=== PATIENT | female | born 1955 | race Caucasian/White ===

== ENCOUNTER 2019-07-30 11:03 | Day surgery (SDC) | payer MEDICARE, SELFPAY | END 2019-07-30 15:30 | disposition home or self-care (01) | PROVIDERS: Visit Provider Urology | DX: D49.4 Neoplasm of unspecified behavior of bladder (principal); K21.9 Gastro-esophageal reflux disease without esophagitis; M19.90 Unspecified osteoarthritis, unspecified site; M79.7 Fibromyalgia; F17.210 Nicotine dependence, cigarettes, uncomplicated | CPT/HCPCS: 52240; 88305; J1100; J2001; J2250; J2405; J2704; J3010; J3490 ==

== ENCOUNTER → 2020-01-03 10:25 | Outpatient (BNVA) | payer MEDICARE, SELFPAY | PROVIDERS: PCP Nurse Practitioner Family; Visit Provider Urology | DX: C67.0 Malignant neoplasm of trigone of bladder (principal) | CPT/HCPCS: 81001 ==

== ENCOUNTER 2020-10-28 07:50 | Outpatient (CLI) | payer MEDICARE, SELFPAY ==
--- NOTE | 2020-10-28 08:03 | CT_ITS ---
WS: [id number] CT LUMBAR SPINE TECHNIQUE: Noncontrast CT of the lumbar spine with coronal and sagittal reformatted images. CLINICAL INFORMATION: CHRONIC LOW BACK PAIN WITH BILAT SCIATICA COMPARISON: MRI October 2008 DLP: 1974.[address] scans at [facility] use at least one of these dose optimization techniques: automat ed exposure control; mA and/or kV adjustment per patient size (includes targeted exams where dose is matched to clinical indication); or iterative reconstruction. FINDINGS: Slight anterolisthesis L4 on L5 measuring 5 mm. This appears new since 2008. Minimal lumbar curve. No acute compression fractures. L1-L2: Mild annular bulging. Spinal canal and foramen are patent. L2-L3: Mild annular bulging. Slight narrowing of the subarticular recess bilaterally. Mild right fora karen narrowing. Mild facet arthropathy. L3-L4: Trace anterolisthesis L3 on L4. Mild annular bulging with mild central canal stenosis. Tiny sh allow central protrusion. Impingement traversing right greater than left L4 nerve roots. Mild right a nd no left foraminal narrowing. Moderate facet arthropathy. Mild central canal stenosis. L4-L5: Grade 1 anterolisthesis. Mild annular bulging with mild to moderate central canal stenosis. Mo derate facet arthropathy. Mild bilateral foraminal narrowing. Moderate facet arthropathy. L5-S1: Mild annular bulging. Slight effacement of ventral thecal sac. Moderate facet arthropathy. Mil d left foraminal narrowing. Visualized pelvic bony structures: Normal. Paravertebral soft tissues: Normal. CT/CT lumbar spine wo con* [id number] IMPRESSION: 1. Grade 1 anterolisthesis L4 on L5 measuring 5 mm new since 2008. 2. Mild central canal stenosis L3-4 and mild to moderate central canal stenosi s L4-5 with annular bulging. Tiny shallow central protrusion L3-4. 3. Mild foraminal narrowing more prominent at right L3-L4 and bilateral L4-5. 4. Moderate facet arthropathy L3-4, L4-5, and L5-S1.
== END 2020-10-28 07:51 | disposition home or self-care (01) ==
LOC: RADWPI 07:54
PROVIDERS: PCP Nurse Practitioner Family; Visit Provider Nurse Practitioner Family
DX: M54.42 Lumbago with sciatica, left side (principal); M47.816 Spondylosis without myelopathy or radiculopathy, lumbar region; M47.817 Spondylosis without myelopathy or radiculopathy, lumbosacral region; M48.061 Spinal stenosis, lumbar region without neurogenic claudication; M51.26 Other intervertebral disc displacement, lumbar region
CPT/HCPCS: 72131

== ENCOUNTER 2021-04-24 13:39 | Outpatient (CLI) | payer MEDICARE, SELFPAY ==
--- NOTE | 2021-04-24 13:58 | CT_ITS ---
WS: [id number] CT ABDOMEN AND PELVIS WITH CONTRAST HISTORY: PELVIC PAIN TECHNIQUE: Imaging performed of the abdomen and pelvis with IV contrast. Single phase imaging of the abdomen. Coronal and sagittal reformats are submitted. All CT scans at [facility] use at [address] [facility] one of these dose optimization techniques: automated exposure control; mA and/or kV adjustment per patient size (includes targeted exams where dose is matched to clinical indication); or iterative re construction. IV CONTRAST: Omnipaque 300; 95 mL IV. Oral contrast: Yes. DLP: 1022.49 mGycm COMPARISON: 02/26/2017 Lower thorax: Lung bases are clear. Heart is normal size. Small hiatal hernia. Liver/biliary system: Normal size with no intrahepatic dilatation. Gallbladder: Normal. No gallstones or wall thickening. No pericholecystic fluid. Pancreas: Normal size pancreas and pancreatic duct. No adjacent inflammation. Spleen: Normal size spleen. No mass or infarct. Adrenal glands: Normal. Right kidney: Normal. Left kidney: No obstruction or solid mass. Too small to characterize 4 mm nodule in the lower pole co rtex. Aorta: Mild atherosclerosis with no aneurysm. Lymphadenopathy: None. Free fluid: None. GI tract: Prior appendectomy. No GI tract obstruction. There is mild diffuse fecal retention and cons tipation. Abdominal wall: Unremarkable abdominal wall. No hernia. Pelvis: Prior hysterectomy. Urinary bladder is well distended. No free fluid or ascites. 9 mm area of low attenuation in the LEFT adnexa may be a small bladder diverticulum or cystic lymph node. This is new since the prior study. Bones: 5 mm anterolisthesis of L4. No osteoblastic or osteolytic disease. CT/CT abdomen pelvis w con* [id number] IMPRESSION: 1. There is a new cystic nodule measuring 9 mm in the LEFT pelvis. Differentia l includes bladder diverticula and a cystic lymph node. Consider follow-up with PET/CT imaging or 3 month follow-up contrast-enhanced abdomen and pelvis CTs. 2. Diffuse fecal retention and constipation. 3. Prior hysterectomy.
[2021-04-24] MEDS: iohexol 300 mg/mL 50 mL Btl PO (14:00)
[2021-04-24] MEDS: iohexol 300 mg/mL 100 mL Btl IV (14:11)
== END 2021-04-24 13:40 | disposition home or self-care (01) ==
PROVIDERS: PCP Nurse Practitioner Family; Visit Provider Nurse Practitioner Family
DX: R10.2 Pelvic and perineal pain (principal); Z90.710 Acquired absence of both cervix and uterus; K59.00 Constipation, unspecified; R19.00 Intra-abdominal and pelvic swelling, mass and lump, unspecified site
CPT/HCPCS: 74177; Q9967

== ENCOUNTER 2021-06-08 05:43 | Emergency (ER) | payer MEDICARE, SELFPAY ==
[2021-06-08 05:50] VITALS: BP 126/77; PULSE 70; RESP 18; TEMP 36.6; O2SAT 98; BMI 30.2
[2021-06-08 06:11] VITALS: BP 117/68; PULSE 66; RESP 16; O2SAT 99
[2021-06-08] MEDS: sodium chloride 0.9% 1,000 ML 999 ML IV ×2 (06:15→07:34)
[2021-06-08 06:21] LABS: Basophils # 0.1 10^3/uL (0.0-0.1); Eosinophils # 0.1 10^3/uL (0.0-0.8); Eosinophils % 1.9 %; Hematocrit 41.2 % (37.0-47.0); Hemoglobin 13.3 g/dL (11.5-15.3); Lymphocytes # 1.2 10^3/uL (0.8-4.8); Lymphocytes % 21.2 %; Mean Corpuscular HGB Conc 32.3 g/dL (30.0-36.0); Mean Corpuscular Hemoglobin 30.6 pg (28.0-34.0); Mean Corpuscular Volume 94.9 fl (81-99); Mean Platelet Volume 9.5 fL (7.4-10.4); Monocytes # 0.8 10^3/uL (0.2-0.9); Neutrophils # 3.58 10^3/uL (1.8-7.7); Neutrophils % 61.7 %; Nucleated Red Blood Cells % 0 %; Platelet Count 240 10^3/cmm (130-400); Red Blood Count 4.34 10^6/uL (4.1-5.3); Red Cell Distribution Width 12.1 % (12.1-15.1); White Blood Count 5.8 10^3/uL (4.0-10.0)
[2021-06-08 06:38] LABS: Alanine Aminotransferase 14 U/L (0-33); Albumin Level 4.1 g/dL (3.5-5.2); Alkaline Phosphatase 67 IU/L (35-105); Anion Gap 13.1 (5-19); Aspartate Amino Transferase 18 U/L (0-32); Blood Urea Nitrogen 10 mg/dL (8-23); C Reactive Protein 5.3 mg/L (0.0-4.9); Calcium 8.7 mg/dL (8.5-10.5); Carbon Dioxide 27 mmol/L (22-29); Chloride 99 mmol/L (98-107); Globulin 2.7 g/dL (1.3-4.6); Glucose 99 mg/dL (65-115); Lipase 19 U/L (13-60); Osmolality Calculated 279 mOsm/kg (285-295); Potassium 4.1 mmol/L (3.5-5.1); Sodium 135 mmol/L (136-145); Total Bilirubin 0.2 mg/dL (0.15-1.2); Total Protein 6.8 g/dL (6.6-8.7)
[2021-06-08 06:39] LABS: Lactate (Lactic Acid level) 1.1 mmol/L (0.5-2.2)
[2021-06-08] MEDS: ondansetron 2 mg/ML SDV 2 mL 4 MG IVP (06:41)
[2021-06-08 07:09] VITALS: BP 117/68; PULSE 64; O2SAT 94
--- NOTE | 2021-06-08 07:18 | W.ED.ABDPA2 ---
HPI - Abdominal Pain General: Chief Complaint: Abdominal Pain Stated Complaint: pt says having gallbladder pain Time Seen by Provider: 06/08/21 06:10 History of Present Illness: HPI narrative: 65-year-old female presents to the emergency room with complaints of abdominal pain. She had a right upper quadrant pain radiating to her back. She is previously had extensive work-ups including gallbladder ultrasound and CT. She has seen Dr. Crespo who is scheduled a HIDA scan which is not due until 1117. States she has been having pain for several days now. MD elicited complaint: abdominal pain and flank pain Pertinent past history: none Onset (ago): minute(s) Location: None Severity: moderate Quality: cramping Radiation: RUQ Migration to: R flank (Into the back) Relieving factors: nothing Associated Symptoms: Reports anorexia, bloating, GI cramping, dyspepsia, nausea and poor appetite; Denies belching, change in bowel habits, change in stool character, chills, coffee ground emesis, constipation, diarrhea, dysuria, excessive flatus, fever(s), heartburn, hematochezia, hematuria, hematemesis, fecal incontinence, loose stools, melena, syncope and vomiting Review of Systems Const: Denies: fever(s) or chills ENMT: Denies: throat pain, ear or mastoid pain, nasal discharge or nasal congestion Card: Denies: syncope Resp: Denies: dyspnea, productive cough or non-productive cough GI: Reports: nausea, bloating and GI cramping; Denies: vomiting, hematemesis, coffee ground emesis, heartburn, diarrhea, constipation, belching, excessive flatus, fecal incontinence, change in bowel habits, change in stool character, hematochezia or melena : Denies: dysuria or hematuria Skin/Breast: Denies: rash or pruritus PFSH ED PFSH: Medical History Cancer of trigone of urinary bladder History of urinary retention Ovarian cancer Urgency incontinence Surgical History History of carpal tunnel repair History of colonoscopy 2020 History of colostomy reversal History of transurethral destruction of bladder lesion Status post appendectomy Status post bilateral oophorectomy Status post colostomy Social History Alcohol intake: never Adopted: No Caregiver/support person: No Lives independently: No Household members: spouse Marital status: Current occupational status: retired History of recent travel: No Current gender identity: Female Physical Exam Const: COMMON NORMALS: no acute distress GENERAL APPEARANCE: cooperative and comfortable ORIENTATION/CONSCIOUSNESS: Yes awake, Yes oriented to person, Yes oriented to place and Yes oriented to time HENMT: COMMON NORMALS: normocephalic, atraumatic and hearing grossly normal bilaterally HEAD & SCALP: normocephalic and atraumatic Neck/C-Spine: COMMON NORMALS: no JVD Resp: COMMON NORMALS: normal respiratory effort, No retractions, No use of accessory muscles and clear to auscultation bilaterally AUSCULTATION: clear to auscultation bilaterally Cardio: COMMON NORMALS: no JVD, regular rate, regular rhythm and No murmurs present (Cardio) RATE: regular rate RHYTHM: regular rhythm GI: AUSCULTATION: Yes normoactive bowel sounds PALPATION: Yes Tenderness to palpation present (GI) Details: RUQ and No Guarding due to palpation present (GI) Extremity: COMMON NORMALS: normal to inspection, capillary refill normal, no clubbing, cyanosis or edema, no calf tenderness and no pedal edema Neuro: SENSORIUM/ORIENTATION: Yes oriented to person, Yes oriented to place and Yes oriented to time Skin: COMMON NORMALS: no rashes or lesions noted GENERAL SKIN EXAM: no rashes or lesions noted Course Vital Signs: Vital signs: Vital Signs Temperature 97.9 F 06/08/21 05:50 Pulse Rate 64 06/08/21 08:50 Respiratory Rate 16 06/08/21 06:11 Blood Pressure 117/68 06/08/21 08:50 Pulse Oximetry 98 06/08/21 08:50 MDM - Abdominal Pain MDM Narrative: Medical decision making narrative: Pain much improved. Discussed with Dr. Crespo and and with the patient. At this point no indication for emergent cholecystectomy. Patient expressed understanding her symptoms resolved discharge home bland diet pain and nausea medications we will try to get her HIDA scan scheduled sooner so she can follow-up with Dr. Crespo for definitive care Dr. Crespo concurred. Lab Data: Labs: Lab Results 06/08/21 06/08/21 06/08/21 06:10 06:10 06:10 WBC 5.8 10^3/uL 10^3/ uL (4.0-10.0) RBC 4.34 10^6/uL 10^6 /uL (4.1-5.3) Hgb 13.3 g/dL g/dL (11.5-15.3) Hct 41.2 % % (37.0-47.0) MCV 94.9 fl fl (81-99) MCH 30.6 pg pg (28.0-34.0) MCHC 32.3 g/dL g/dL (30.0-36.0) RDW 12.1 % % (12.1-15.1) Plt Count 240 10^3/cmm 10^3 /cmm (130-400) MPV 9.5 fL fL (7.4-10.4) Neut % (Auto) 61.7 % % Lymph % (Auto) 21.2 % % Kershaw % (Auto) 14.0 % % Eos % (Auto) 1.9 % % Baso % (Auto) 1.0 % % Neut # (Auto) 3.58 10^3/uL 10^3 /uL (1.8-7.7) Lymph # (Auto) 1.2 10^3/uL 10^3/ uL (0.8-4.8) Kershaw # (Auto) 0.8 10^3/uL 10^3/ uL (0.2-0.9) Eos # (Auto) 0.1 10^3/uL 10^3/ uL (0.0-0.8) Baso # (Auto) 0.1 10^3/uL 10^3/ uL (0.0-0.1) Nucleated RBC % (a uto) 0 % % Nucleated RBCs # 0.0 /100WBC /100W BC Sodium 135 mmol/L L mmol /L (136-145) Potassium 4.1 mmol/L mmol/L (3.5-5.1) Chloride 99 mmol/L mmol/L (98-107) Carbon Dioxide 27 mmol/L mmol/L (22-29) Anion Gap 13.1 (5-19) BUN 10 mg/dL mg/dL (8-23) Creatinine 0.6 mg/dL mg/dL (0.5-0.9) GFR Calculation 101.0 mL/min mL/m in (90-130) Glucose 99 mg/dL mg/dL (65-115) Calculated Osmolal ity 279 mOsm/kg L mOs m/kg (285-295) Lactate 1.1 mmol/L mmol/L (0.5-2.2) Calcium 8.7 mg/dL mg/dL (8.5-10.5) Total Bilirubin 0.2 mg/dL mg/dL (0.15-1.2) AST 18 U/L U/L (0-32) ALT 14 U/L U/L (0-33) Alkaline Phosphata se 67 IU/L IU/L (35-105) C-Reactive Protein 5.3 mg/L H mg/L (0.0-4.9) Total Protein 6.8 g/dL g/dL (6.6-8.7) Albumin 4.1 g/dL g/dL (3.5-5.2) Globulin 2.7 g/dL g/dL (1.3-4.6) Lipase 19 U/L U/L (13-60) Urine Color Urine Appearance Urine pH Ur Specific Gravit y Urine Protein Urine Glucose (UA) Urine Ketones Urine Blood Urine Nitrate Urine Bilirubin Urine Urobilinogen Ur Leukocyte Thelma ase 06/08/21 08:13 WBC RBC Hgb Hct MCV MCH MCHC RDW Plt Count MPV Neut % (Auto) Lymph % (Auto) Kershaw % (Auto) Eos % (Auto) Baso % (Auto) Neut # (Auto) Lymph # (Auto) Kershaw # (Auto) Eos # (Auto) Baso # (Auto) Nucleated RBC % (a uto) Nucleated RBCs # Sodium Potassium Chloride Carbon Dioxide Anion Gap BUN Creatinine GFR Calculation Glucose Calculated Osmolal ity Lactate Calcium Total Bilirubin AST ALT Alkaline Phosphata se C-Reactive Protein Total Protein Albumin Globulin Lipase Urine Color Straw (Yellow) Urine Appearance Clear (CLEAR) Urine pH 5 (5-7) Ur Specific Gravit y 1.015 (1.005-1.030) Urine Protein Neg (Negative) Urine Glucose (UA) Norm (Normal) Urine Ketones Negative (Negative) Urine Blood Neg (Negative) Urine Nitrate Negative (Negative) Urine Bilirubin Neg (Negative) Urine Urobilinogen Norm mg/dL mg/dL (Negative) Ur Leukocyte Thelma ase Negative (Negative) Discharge Plan Discharge Patient Disposition: Home Clinical Impression: Biliary colic Condition: Stable Prescriptions: New hydrocodone-acetaminophen 5-325 mg tablet 1 tab PO Q6H PRN (Reason: pain) Qty: 10 RF: 0 promethazine 25 mg tablet 25 mg PO Q6H PRN (Reason: nausea and vomiting) Qty: 20 RF: 0 No Action gabapentin 600 mg tablet 600 mg PO DAILY RF: 0 Protonix [address] for susp in packet 40 mg PO DAILY RF: 0 duloxetine [Cymbalta] 60 mg capsule,delayed release(DR/EC) 90 mg PO DAILY RF: 0 lidocaine HCl 2 % jelly 20 ml INTRA-URET ONCE Qty: 1 RF: 0 cetirizine-pseudoephedrine [Zyrtec-D] 5-120 mg tablet extended release 12 hr 1 tab PO BID PRNRF: 0 metoprolol succinate 25 mg tablet extended release 24 hr 25 mg PO DAILY RF: 0 montelukast 10 mg tablet 10 mg PO DAILY RF: 0 lisinopril 5 mg tablet 5 mg PO DAILY RF: 0 rosuvastatin [Crestor] 10 mg tablet 10 mg PO DAILY RF: 0 chlorzoxazone 500 mg tablet 500 mg PO TID PRNRF: 0 sennosides-docusate sodium [Senna-S] 8.6-50 mg tablet 1 tab-cap PO BID 30 Days Qty: 60 RF: 0 Discharge Orders: Discharge ED (Routine); Ordered 06/08/21 Ordered By: Joe Washington Referrals: Klaudia Cedeno FNP [Primary Care Provider] - Discharge Diet: As Directed Discharge Activity: Resume usual activity Patient Instructions: Abdominal Pain (ED), Opioid Safety Activity Restrictions/Additional Instructions: Avoid fatty foods, meats, tomato-based sauces dairy products. Case management will try to move up the HIDA scan and contact Dr. Crespo's office. 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
[2021-06-08] MEDS: morphine 4 mg/mL SDV 1 mL 2 MG IVP (07:29)
[2021-06-08 08:45] LABS: Add Urine Microscopic? NO; Charge for UA Resulting for Rev
[2021-06-08 08:48] LABS: Bilirubin Urine Neg (Negative); Blood Urine Neg (Negative); Glucose Urine UA Norm (Normal); Ketones Urine Negative (Negative); Leukocyte Esterase Urine Negative (Negative); Nitrate Urine Negative (Negative); Protein Urine Neg (Negative); Specific Gravity, Urine 1.015 (1.005-1.030); Urine Appearance Clear (CLEAR); Urine Color Straw (Yellow); Urobilinogen Urine Norm (Negative); pH Urine 5 (5-7)
[2021-06-08 08:50] VITALS: BP 117/68; PULSE 64; O2SAT 98
--- NOTE | 2021-06-09 08:48 | DCPLANNER ---
Chandler ames had message to speak with centralized scheduling to see if patients HIDA scan could be rescheduled to a sooner appointment. cafeteria manager called centralized scheduling, spoke with Shena, was told that the appointment scheduled is the soonest appointment scheduled. cafeteria manager was also told that patient is on a wait list, so if there is a cancellation, then patients appointment could be moved. Chandler ames called patient and left a voicemail telling her that I tried to get the HIDA scan moved up and was unable to get the appointment changed. cafeteria manager also had message to schedule a follow up appointment for patient with general surgery, Dr. Crespo. Chandler lowe emailed patients information to both Luma and Diana at [facility] General Surgery / ENT clinic. Patients information will be printed and reviewed. Clinic will call patient with appointment information.
--- NOTE | 2021-06-10 15:29 | DCPLANNER ---
Patient had a follow up appointment scheduled for 06.09.[address] Crespo at [facility] General Surgery - patient did attend appointment.
== END 2021-06-08 08:51 | disposition home or self-care (01) ==
PROVIDERS: Emergency Medicine; Emergency Provider Family Medicine; PCP Nurse Practitioner Family
DX: K80.50 Calculus of bile duct without cholangitis or cholecystitis without obstruction (principal); Z85.43 Personal history of malignant neoplasm of ovary; Z85.51 Personal history of malignant neoplasm of bladder
CPT/HCPCS: 80053; 81003; 83605; 83690; 85025; 86140; 96361; 96374; 96375; 99283; J2270; J2405; J2930; J7030

== ENCOUNTER → 2021-06-12 08:28 | Outpatient (BNVA) | payer MEDICARE, SELFPAY | PROVIDERS: PCP Nurse Practitioner Family; Visit Provider Surgery | DX: Z20.822 Contact with and (suspected) exposure to COVID-19 (principal); Z11.52 Encounter for screening for COVID-19 | CPT/HCPCS: 87635 ==

== ENCOUNTER 2021-06-17 10:24 | Day surgery (SDC) | payer MEDICARE, SELFPAY ==
[2021-06-16 11:48] VITALS: BMI 30.2
--- NOTE | 2021-06-17 10:55 | W.PM.OPSUD ---
Surgery/Procedure H&P Update DATE OF PROCEDURE: June 17, 2021 DATE H&P PERFORMED: 06/09/21 H&P UPDATE INFORMATION: I have reviewed H&P completed within last 30 days, I have examined patient prior to procedure and No changes to prior documentation PLANNED PROCEDURE: Operation Date: 06/17/21 11:50 Proposed Procedures p Laparoscopic Cholecystectomy 81168 K80.50(Not Applicable) - Alejandro Crespo MD s EGD 93359 K80.50(Not Applicable) - Alejandro Crespo MD
[2021-06-17 11:20] VITALS: BP 121/66; PULSE 68; RESP 18; TEMP 36.2; O2SAT 96
[2021-06-17] MEDS: sodium chloride 0.9% 1,000 ML 30 ML IV (11:41)
--- NOTE | 2021-06-17 12:19 | ANES.PREANE2 ---
Pre-Anesthetic Assessment Pre-Anesthetic Assessment: Height/Weight: Height 1.5 m Weight 68.039 kg Temp Pulse Resp BP Pulse Ox 97.1 F L 68 18 121/66 96 06/17/21 11:20 06/17/21 11:20 06/17/21 11:20 06/17/21 11:20 06/17/21 11:20 Preop Diagnosis: Chronic cholecystitis Proposed Procedure: Operation Date: 06/17/21 11:50 Proposed Procedures p Laparoscopic Cholecystectomy 65487 K80.50(Not Applicable) - Alejandro Crespo MD s EGD 93698 K80.50(Not Applicable) - Alejandro Crespo MD Was Beta Doris taken within 24 hours: Yes Was Clonidine taken within 24 hours: N/A Last intake: Intake Last Liquid Date 06/16/21 Last Liquid Time 20:00 Last Solid Date 06/17/21 Last Solid Time 20:00 Social: Social History: Tobacco and No alcohol Exam: Pre-Anes Outpt Exam: alert, oriented x 3 and regular rate & rhythm Airway: Submandibular: WNL Cervical ROM: WNL MP: 2 Dentition: False (lower) Pulmonary: Pulmonary: COPD CV/HEM: CV/HEM: HTN Metabolic: Metabolic: Hyperlipidemia Neuropsych: Neuropsych: Depression and Neuropathy Anesthetic Plan: ASA status: 3 Anesthesia: General Risk of > 500 ml blood loss (7ml/kg in children): No Meds/Allergies Current Medications: Current Medications Generic Name Dose Route Start Last Admin Trade Name Freq PRN Reason Stop Dose Admin Sodium Chloride 1,000 mls @ 30 ml s/hr 06/17/21 11:15 06/17/21 11:41 Sodium Chloride 0.9% IV 06/18/21 11:14 30 mls/hr .Q24H JOSI Administration PFSH Anesthesia PFSH: Medical History (Updated 06/16/21 @ 00:01 by ) Cancer of trigone of urinary bladder History of urinary retention Ovarian cancer Urgency incontinence Surgical History (Updated 06/17/21 @ 12:06 by Alejandro Crespo MD) H/O esophagogastroduodenoscopy (06/17/21) History of carpal tunnel repair History of colonoscopy 2020 History of colostomy reversal History of transurethral destruction of bladder lesion Status post appendectomy Status post bilateral oophorectomy Status post colostomy Status post laparoscopic cholecystectomy (11/17/21) Social History Alcohol intake: never Adopted: No Caregiver/support person: No Lives independently: No Household members: spouse Marital status: Current occupational status: retired History of recent travel: No Current gender identity: Female Data Anesthesia Cardiac Studies: No Data to Display
[2021-06-17] MEDS: levofloxacin-dextrose 5 % 500 MG/100 ML PREMIX 100 MG IV (12:47)
--- NOTE | 2021-06-17 14:03 | PM.OP ---
Operative Report Date of procedure: June 17, 2021 Pre-op Diagnosis: 1. Chronic cholecystitis 2. History of ovarian cancer 3. Postprandial right upper quadrant pain Post-op Diagnosis: 1. Nonerosive gastritis noted in the antrum biopsied with cold biopsy forceps 2. Omental lesions noted in the right upper quadrant, no significant lesions noted in the other quadrants of the abdominal cavity 3. Chronic cholecystitis 4. Loop of small bowel adherent to the abdominal wall inferior to the umbilicus Procedure Done: 1. Esophagogastroduodenoscopy with biopsy 2. Laparoscopic cholecystectomy 3. Laparoscopic excision of omental lesions Specimens removed/disposition: 1. antral biopsy 2. chronic cholecystitis 3. omental lesions right upper quadrant Surgeon: Alejandro Crespo Anesthesia: General Condition: stable Disposition: PACU Procedure: The patient was taken to the operating room and intubated under GA. A gastroscope was introduced and advanced up to second portion of the duodenum and slowly withdrawn. Duodenum second portion: Normal Duodenal bulb: Normal Stomach Fundus: Normal body: Normal Antrum: non erosive gastritis noted , which was biopsied with cold biopsy forceps. Pylorus: Normal Esophagus GE junction: Normal at 40 cm Rest of esophagus: Normal After the antibiotic had been administered, the abdomen was prepped and draped in a sterile manner. Using a #15 blade, a 1 centimeter infraumbilical curvilinear incision was made and using an open Magaly technique the peritoneal cavity was entered. A 10 millimeter port was placed and 15 millimeters of pneumoperitoneum was created. A 10 millimeter, 30 degrees scope was then introduced. Three 5 millimeter ports were placed in the epigastric, midclavicular and the anterior axillary line two fingerbreadths below the costal margin on the right side under the direct visualization. Ratcheted forceps were introduced into the lateral most port and was used to retract the fundus of the gallbladder cephalad and using forceps the infundibulum of the gallbladder was retracted laterally. The density lesions around infundibulum of the gallbladder which was taken down using a combination of electrocautery and suction gate person. There was bleeding from the omentum adherent to the gallbladder and this was controlled with clips. Using L-hook cautery the peritoneum overlying the Calot's triangle was opened medially and laterally until the cystic duct and the cystic artery were skeletonized. Dissection was carried along the body of the gallbladder and after ensuring critical view of safety, 4 clips were applied on the cystic duct and cut leaving, 3 clips on the remaining portion of the duct. The cystic artery was divided with electrocautery. The rest of the gallbladder was dissected off the liver using L-hook cautery. There was no bleeding or bile leaking noted from the gallbladder fossa and the clips appeared to be in place. An EndoCatch bag was introduced to remove the gallbladder. There were multiple omental lesions noted in the right upper quadrant and this was excised using electrocautery and sent to pathology in formalin, given patient's history of ovarian cancer. All the ports were removed under direct visualization and there was no bleeding noted from the port sites. The fascia of the umbilicus was closed using [id number] 0 Vicryl sutures and the subcutaneous tissue was approximated using 3-0 Vicryl sutures. The skin at all four ports were closed using 4-0 Monocryl and Dermabond. A total of 10 millimeters of 0.5% Marcaine was infiltrated around the port sites. The patient was stable throughout the procedure.
[2021-06-17 14:12] VITALS: BP 167/75; PULSE 68; RESP 20; TEMP 36.2; O2SAT 96
[2021-06-17 14:20] VITALS: BP 144/65; PULSE 74; RESP 18; O2SAT 96
[2021-06-17 14:25] VITALS: BP 119/73; PULSE 67; RESP 22; TEMP 36.4; O2SAT 94
[2021-06-17] MEDS: HYDROcodone-acetaminophen 5-325 mg Tablet 1 TAB PO (14:55)
--- NOTE | 2021-06-17 14:56 | ANE.PACU2 ---
Inpatient post-anesthesia follow up: Airway intact: Yes Vital signs: Temperature 97.5 F Pulse Rate 67 Respiratory Rate 22 Blood Pressure 119/73 Pulse Oximetry 94 Oxygen Delivery Me thod Room Air Oxygen Flow Rate 8 Fraction of Inspir ed Oxygen Hydration adequate: Yes Nausea and vomiting: No Pain level: 2 Mental status: Baseline
== END 2021-06-17 15:15 | disposition home or self-care (01) ==
PROVIDERS: PCP Nurse Practitioner Family; Visit Provider Surgery
PROC: 0FT44ZZ Resection of Gallbladder, Percutaneous Endoscopic Approach (ICD-10-PCS; CPT 47562; principal; 2021-06-17 11:45)
PROC: 0DJ08ZZ Inspection of Upper Intestinal Tract, Via Natural or Artificial Opening Endoscopic (ICD-10-PCS; CPT 43235; 2021-06-17 11:45)
DX: K80.50 Calculus of bile duct without cholangitis or cholecystitis without obstruction (principal); K29.50 Unspecified chronic gastritis without bleeding; C78.6 Secondary malignant neoplasm of retroperitoneum and peritoneum; K56.2 Volvulus; Z85.43 Personal history of malignant neoplasm of ovary; Z90.89 Acquired absence of other organs; Z88.5 Allergy status to narcotic agent; Z88.0 Allergy status to penicillin; Z88.2 Allergy status to sulfonamides
CPT/HCPCS: 43239; 47562; 58662; 88304; 88305; 96365; J1100; J1956; J2310; J2405; J2704; J2710; J3010; J3490; J7030

== ENCOUNTER 2021-07-28 13:47 | Outpatient (CLI) | payer MEDICARE, SELFPAY ==
--- NOTE | 2021-07-28 | CT_ITS ---
WS: [id number] CT scan of the abdomen and pelvis with Oral and IV contrast. Additional two-dimensional coronal and s agittal reconstruction was performed. 07/28/2021 Clinical Data: OVARIAN CANCER Comparison: CT abdomen and pelvis, 04/24/2021. DLP: 1048.[address] scans at [facility] use at least one of these dose optimization techniques: automated e xposure control; mA and/or kV adjustment per patient size (includes targeted exams where dose is matc hed to clinical indication); or iterative reconstruction. Findings: The lower lungs show no nodules, masses or effusions. There is moderate ascites throughout the abdome n. The liver, spleen, adrenal glands and pancreas are normal. There are clips in the gallbladder fossa f rom a cholecystectomy. The kidneys show equal bilateral contrast excretion with no cyst or masses. No renal calculi or hydro nephrosis is seen. The abdominal aorta is normal in size with minimal calcification in the wall.. No appendicitis or diverticulitis is seen. Oral contrast is in the stomach, small bowel and ascending colon and there is no bowel dilatation. No abscess, adenopathy, mass, obstruction or free air is see n. The bladder is unremarkable. The uterus is absent. No inguinal hernia is seen. No pelvic masses are s een. The bones of the lower thorax, lumbar spine, pelvis, and hips show minimal osteoarthritis of the lowe r thoracic vertebral bodies. CT/CT abdomen pelvis w con* [id number] Impression: 1. Moderate abdominal and pelvic ascites. 2. Negative for acute intra-abdominal or pelvic abnormalities. 3. Report was called to Nidia Durham at 1525 hours.
[2021-07-28] MEDS: iohexol 300 mg/mL 50 mL Btl PO (16:18)
[2021-07-28] MEDS: iohexol 350 mg/mL 100 mL Btl IV (16:18)
== END 2021-07-28 13:48 | disposition home or self-care (01) ==
PROVIDERS: PCP Nurse Practitioner Family; Visit Provider Physician Assistant
DX: C56.9 Malignant neoplasm of unspecified ovary (principal); R18.8 Other ascites
CPT/HCPCS: 74177; Q9967

== ENCOUNTER 2021-08-04 12:52 | Outpatient (CLI) | payer MEDICARE, SELFPAY ==
[2021-08-04 15:53] LABS: INR 1.03 (0.8-1.2)
[2021-08-04 15:55] LABS: Basophils # 0.1 10^3/uL (0.0-0.1); Eosinophils # 0.2 10^3/uL (0.0-0.8); Eosinophils % 3.8 %; Hematocrit 34.5 % (37.0-47.0); Hemoglobin 11.1 g/dL (11.5-15.3); Lymphocytes # 1.4 10^3/uL (0.8-4.8); Lymphocytes % 27.9 %; Mean Corpuscular HGB Conc 32.2 g/dL (30.0-36.0); Mean Corpuscular Hemoglobin 28.9 pg (28.0-34.0); Mean Corpuscular Volume 89.8 fl (81-99); Mean Platelet Volume 8.8 fL (7.4-10.4); Monocytes # 0.8 10^3/uL (0.2-0.9); Neutrophils # 2.54 10^3/uL (1.8-7.7); Neutrophils % 50.7 %; Nucleated Red Blood Cells % 0 %; Platelet Count 543 10^3/cmm (130-400); Red Blood Count 3.84 10^6/uL (4.1-5.3); Red Cell Distribution Width 12.5 % (12.1-15.1)
[2021-08-04 16:06] LABS: Alanine Aminotransferase 12 U/L (0-33); Albumin Level 3.4 g/dL (3.5-5.2); Alkaline Phosphatase 69 IU/L (35-105); Anion Gap 17.8 (5-19); Aspartate Amino Transferase 16 U/L (0-32); Blood Urea Nitrogen 6 mg/dL (8-23); Calcium 8.2 mg/dL (8.5-10.5); Carbon Dioxide 23 mmol/L (22-29); Chloride 94 mmol/L (98-107); Globulin 2.8 g/dL (1.3-4.6); Glomerular Filtration Rate 124.6 mL/min (90-130); Glucose 85 mg/dL (65-115); Osmolality Calculated 269 mOsm/kg (285-295); Potassium 3.8 mmol/L (3.5-5.1); Sodium 131 mmol/L (136-145); Total Bilirubin 0.2 mg/dL (0.15-1.2); Total Protein 6.2 g/dL (6.6-8.7)
--- NOTE | 2021-08-05 07:53 | ONC CON_ITS ---
Dr. Benitez New Patient Note Patient: Tonya Pacheco Unit #: [id number]: 1955 Dicatated By: Reno Benitez M.D.Date of Visit: Aug 04, 2021 Onc MED New Patient/Consult Referring Physician: Jose D Jefferson M.D. Chief Complaint: Ovarian cancer. 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 She had presented with a pelvic mass. At exploratory laparotomy she was found to have a hard mass between the uterus and rectum which appeared to be arising from the left ovary. The disease appeared to be growing into the rectal area, but there were no peritoneal implants noted and the disease appeared to be all confined within the pelvis. The procedure included hysterectomy, bilateral bilateral salpingo-oophorectomy and partial omentectomy. The tumor was completely excised, though she did require temporary placement of a diverting loop colostomy due to invasion of the adjacent sigmoid colon. Pathology showed grade 3/4 adenocarcinoma felt to be most consistent with serous adenocarcinoma, though it did show a papillary configuration. The tumor measured 11.8 cm in maximum dimension. There was focal penetration through the capsule of the left ovary into the included portion of the adjacent bowel wall. There was no involvement in the left fallopian tube or in the right ovary and right fallopian tube and there was no involvement in the omentum. She was given postoperative adjuvant chemotherapy with 6 cycles of carboplatin/Taxol, which she completed in March 2008. I had last seen her in December 2012. At that point there had been no evidence of recurrence of the ovarian cancer. 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 She has continued surveillance with Dr. Magaña. On 05/29/2021 she was seen by Dr. Crespo with worsening abdominal pain. A prior CT abdomen/pelvis from 04/24/2021 had shown evidence of a new cystic nodule in the left pelvis measuring 9 mm. The only other significant finding was diffuse fecal retention and constipation. She was scheduled to have further evaluation with a HIDA scan. However, in the meantime she had presented to the emergency room with biliary colic, and he opted to proceed with EGD and laparoscopic cholecystectomy on 06/17/2021. The EGD showed nonerosive gastritis. 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 The gallbladder showed acute and chronic cholecystitis with no malignancy identified. In July she had a [facility] oncology consultation with Dr. Singh. At the time she indicated she would not consider any further chemotherapy. He suggested the possibility of a trial of therapy with letrozole or with selumetinib and trametinib. As yet she has not had any further treatment. Her other medical illnesses include degenerative arthritis/degenerative disease of the spine, fibromyalgia, and anxiety/depression. She has history of smoking 2 packs of cigarettes daily for 40 years. She is seen now for further management of the ovarian cancer. In the interim, she did have another CT of the abdomen/pelvis on 07/28/2021. That study showed development of moderate abdominal and pelvic ascites but it was otherwise negative for acute intra-abdominal or pelvic abnormalities. Her main complaint is that she is having difficulty dealing with the fluid, and she also has not having pain in the right upper quadrant area which radiates around to her back. She is fatigued, and she has very limited activity. ECOG score is 2. She complains that she has no appetite. She has not had fever. She reports having bad night sweating. She has not had sore mouth or throat. She has a smoker's cough. She says her breathing is okay, though she sometimes has wheezing. She does not complain of chest pain. She says her stomach feels a little queasy. She has been having constipation, but her bowel function recently has been better. She has no complaints other than some urgency/incontinence, which is chronic. She has chronic back pain. She does not complain of headache. She has occasional lightheadedness. She has no numbness/paresthesia or other focal neurologic symptoms. Past Medical History: Her medical history includes anxiety, degenerative arthritis, degenerative disease of the spine, depression, fibromyalgia, ovarian cancer, and history of bladder cancer. Past Surgical History: Her surgical/procedural history includes appendectomy, carpal tunnel repair, colostomy reversal, EGD and laparoscopic cholecystectomy in 2020, colonoscopy in 2020, transurethral destruction of bladder lesion in 2018, and hysterectomy/bilateral salpingo-oophorectomy/omentectomy and placement of diverting colostomy in 2007. Medications: Crestor 1 Tablet (of 10 mg) Oral at bedtime, DULoxetine HCl 1 Tablet (of 60 mg) Capsule Delayed Release Particles Oral daily, DULoxetine HCl 1 Tablet (of 30 mg) Capsule Delayed Release Particles Oral daily, Esomeprazole Magnesium 1 Capsule (of 40 mg) Capsule Delayed Release Oral daily, Famotidine 1 Tablet (of 40 mg) Oral daily, Gabapentin 1 Tablet (of 600 mg) Oral at bedtime, HYDROcodone-Acetaminophen 1 - 2 Tablet (of 5-325 mg) Oral q 8 hours PRN, Lisinopril 1 Tablet (of 5 mg) Oral daily, Metoprolol Succinate ER 1 Tablet (of 25 mg) Tablet SR 24 HR Oral daily, Montelukast Sodium 1 Tablet Oral daily, Senokot S 1 Tablet (of 8.6-50 mg) Oral daily PRN Allergies: Codeine Phosphate, influenza virus vaccine tval , Morphine Sulfate, NSAIDs, Penicillin G Benzathine, and Sulfa Antibiotics. Social History: Ms. Pacheco is . She has history of smoking 2 packs of cigarettes daily for 40 years. She does not drink alcohol. Family History: Family history significant for mother having of breast cancer at age 62. A paternal aunt had breast cancer and a paternal uncle had non-Hodgkin's lymphoma. Review Of Symptoms: Constitutional - She has fatigue in her activity is limited. She complained that she has no appetite. She has not had fever. She does have bad night sweating. ECOG score is 2, ENMT - No sinus congestion/drainage. No mouth sores. No sore throat or difficulty swallowing, Hematologic/Lymphatic - No abnormal bruising or bleeding, Respiratory - She does not complain of shortness of breath, though she sometimes has wheezing. She has a smokers cough. No pleuritic pain or hemoptysis, Cardiovascular - No angina pain. No palpitations, Gastrointestinal - No nausea or vomiting, but she sometimes feels queasy. She has occasional acid reflux. She has had some constipation, and she is having pain in the right upper quadrant area. No blood in the stool or black stools, Genitourinary (F) - No dysuria or hematuria. No urinary frequency. She does have some urgency/incontinence, Musculoskeletal - She has had some back pain, Integumentary - No skin rash or other skin changes, Neurologic - No headache. She has had some lightheadedness. No numbness or tingling. No other focal neurologic symptoms, Psychiatric - She has anxiety/depression. No insomnia. Vital Signs: Performed on Aug 04, 2021 14:32: 5, 6, 26.71, 1.72 sq.m, 63.00 in, 98 %, 71 /min, 17 /min, 111/72 mm(hg), 98.0 F (LOW), and 150.8 lbs (HIGH). Physical Examination: Constitutional - She looks pretty good generally, Eyes - Sclerae nonicteric. Conjunctivae clear, ENMT - No lesions noted in the oral cavity, Neck - No mass or thyromegaly, Hematologic/Lymphatic - No cervical, clavicular or axillary adenopathy, Respiratory - Lungs sound clear with some decrease in air movement bilaterally, Cardiovascular - Heart rhythm is regular. There is no murmur, gallop, or rub noted, Abdomen - Moderately distended with ascites. There is tenderness across the upper abdomen. Liver and spleen do not appear enlarged. There is no abdominal mass or ascites noted and no inguinal adenopathy, Back/Spine - No bony tenderness in the spine or ribs, Extremities - No edema, Neurologic - No focal neurologic deficits noted. Problem List: 1. Recurrent ovarian cancer. 2. She has additional history of low-grade papillary urothelial cancer involving the bladder trigone for which she underwent TURBT in July 2019. She is on surveillance. 3. Degenerative arthritis/degenerative disease of the spine. 4. Fibromyalgia. 5. Anxiety/depression. 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 Her treatment included hysterectomy/bilateral salpingo-oophorectomy and omentectomy in October 2007 followed by adjuvant chemotherapy with 6 cycles of carboplatin/paclitaxel, completed in March 2008. She now has recurrence of the ovarian cancer in the form of multiple omental lesions. There is associated ascites. Pathology on the omental biopsy was consistent with ovarian mixed malignant Tone-mucinous tumor. Clinically this was felt to be consistent with a low-grade ovarian neoplasm, but she has had fairly rapid onset of ascites following a laparoscopic cholecystectomy procedure in June 2021. At this point I will get her scheduled for ultrasound-guided paracentesis, and will have studies done on the ascitic fluid. Also will get baseline laboratory studies to include CBC, CMP, and CA-125 level. In the meantime, I also will request next generation sequencing on the omental biopsy. I will plan to discuss further treatment options when those results are available. Signed By: Reno Benitez M.D. <<Signature on File>>
== END 2021-08-04 12:53 | disposition home or self-care (01) ==
LOC: ONCMED 13:01
PROVIDERS: PCP Nurse Practitioner Family; Visit Provider Internal Medicine Medical Oncology
DX: C79.60 Secondary malignant neoplasm of unspecified ovary (principal); F41.9 Anxiety disorder, unspecified; F32.A Depression, unspecified; M79.7 Fibromyalgia; M47.899 Other spondylosis, site unspecified; Z79.899 Other long term (current) drug therapy; Z85.51 Personal history of malignant neoplasm of bladder; Z87.891 Personal history of nicotine dependence
CPT/HCPCS: 36415; 80053; 85025; 85610; 86304; 99205

== ENCOUNTER 2021-08-14 12:02 | Day surgery (SDC) | payer MEDICARE, SELFPAY ==
[2021-08-10 16:09] VITALS: BMI 30.2
[2021-08-14 12:10] VITALS: BP 113/68; PULSE 63; RESP 18; TEMP 36.5; O2SAT 98
--- NOTE | 2021-08-14 12:26 | US_ITS ---
WS: [id number] INDICATION: Paracentesis TECHNIQUE: Four-quadrant ultrasound FINDINGS: Four-quadrant ultrasound for paracentesis. Mild abdominal ascites today. Insufficient ascites for paracentesis. US/US abdomen lmt fluid [id number] IMPRESSION: Insufficient fluid for paracentesis
== END 2021-08-14 12:54 | disposition home or self-care (01) ==
LOC: GILAB 12:03
PROVIDERS: Radiology Neuroradiology; PCP Nurse Practitioner Family; Visit Provider Radiology Diagnostic Radiology
DX: R18.8 Other ascites (principal)
CPT/HCPCS: 49083; 76705

== ENCOUNTER 2021-08-31 08:20 | Outpatient (CLI) | payer MEDICARE, SELFPAY ==
--- NOTE | 2021-09-01 08:15 | ONC FU_ITS ---
Dr. Benitez Patient Follow-Up Note Patient: Tonya Pacheco Unit #: [id number]: 1955 Dicatated By: Reno Benitez M.D.Date of Visit:Aug 31, 2021 Onc Med Follow-up/Prog Note Chief Complaint: Ovarian cancer. 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 She had presented with a pelvic mass. At exploratory laparotomy she was found to have a hard mass between the uterus and rectum which appeared to be arising from the left ovary. The disease appeared to be growing into the rectal area, but there were no peritoneal implants noted and the disease appeared to be all confined within the pelvis. The procedure included hysterectomy, bilateral bilateral salpingo-oophorectomy and partial omentectomy. The tumor was completely excised, though she did require temporary placement of a diverting loop colostomy due to invasion of the adjacent sigmoid colon. Pathology showed grade 3/4 adenocarcinoma felt to be most consistent with serous adenocarcinoma, though it did show a papillary configuration. The tumor measured 11.8 cm in maximum dimension. There was focal penetration through the capsule of the left ovary into the included portion of the adjacent bowel wall. There was no involvement in the left fallopian tube or in the right ovary and right fallopian tube and there was no involvement in the omentum. She was given postoperative adjuvant chemotherapy with 6 cycles of carboplatin/Taxol, which she completed in March 2008. I had last seen her in December 2012. At that point there had been no evidence of recurrence of the ovarian cancer. 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 She has continued surveillance with Dr. Magaña. On 05/29/2021 she was seen by Dr. Crespo with worsening abdominal pain. A prior CT abdomen/pelvis from 04/24/2021 had shown evidence of a new cystic nodule in the left pelvis measuring 9 mm. The only other significant finding was diffuse fecal retention and constipation. She was scheduled to have further evaluation with a HIDA scan. However, in the meantime she had presented to the emergency room with biliary colic, and he opted to proceed with EGD and laparoscopic cholecystectomy on 06/17/2021. The EGD showed nonerosive gastritis. 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 The gallbladder showed acute and chronic cholecystitis with no malignancy identified. In July she had a [facility] oncology consultation with Dr. Singh. At the time she indicated she would not consider any further chemotherapy. He suggested the possibility of a trial of therapy with letrozole or with selumetinib and trametinib. As yet she has not had any further treatment. Her CT of the abdomen/pelvis on 07/28/2021 showed development of moderate abdominal and pelvic ascites but it was otherwise negative for acute intra-abdominal or pelvic abnormalities. She had an attempted ultrasound guided paracentesis on 08/14/2021, but the procedure was not performed due to insufficient fluid. Her other medical illnesses include degenerative arthritis/degenerative disease of the spine, fibromyalgia, and anxiety/depression. She has history of smoking 2 packs of cigarettes daily for 40 years. INTERIM HISTORY: A next generation sequencing study performed on the omental biopsy showed no actionable mutations. The tumor was MSI stable and a tumor mutational burden was low. However, it was positive for PD-L1 expression, CPS 15%, and the genomic CRISTOBAL was reported to be high at 18%. She is seen for a follow-up visit. She complains that she is worn out. Her main problem is that she has been having pain extending from the epigastric area down to the lower abdomen whenever she tries to eat. She has not been able to eat very much because of it, but she has not had nausea/vomiting or other associated GI symptoms. She says her bowels have been moving once or twice a day. She is still able to do housework. ECOG score is 1. She has not had fever, she has been having night sweating. She has not had sore mouth or throat. She has a smoker's cough. She does not complain of shortness of breath or chest pain. Bladder function has been okay. She has no significant joint or bone pain. She does not complain of headache or dizziness, and she has no focal neurologic symptoms. She has been having more depression, but that is associated with the pain and the difficulty eating. Medications: Crestor 1 Tablet (of 10 mg) Oral at bedtime, DULoxetine HCl 1 Tablet (of 60 mg) Capsule Delayed Release Particles Oral daily, DULoxetine HCl 1 Tablet (of 30 mg) Capsule Delayed Release Particles Oral daily, Esomeprazole Magnesium 1 Capsule (of 40 mg) Capsule Delayed Release Oral daily, Famotidine 1 Tablet (of 40 mg) Oral daily, Gabapentin 1 Tablet (of 600 mg) Oral at bedtime, HYDROcodone-Acetaminophen 1 - 2 Tablet (of 5-325 mg) Oral q 8 hours PRN, Lisinopril 1 Tablet (of 5 mg) Oral daily, Metoprolol Succinate ER 1 Tablet (of 25 mg) Tablet SR 24 HR Oral daily, Montelukast Sodium 1 Tablet Oral daily, Senokot S 1 Tablet (of 8.6-50 mg) Oral daily PRN Allergies: Codeine Phosphate, influenza virus vaccine tval , Morphine Sulfate, NSAIDs, Penicillin G Benzathine, and Sulfa Antibiotics. Vital Signs: Performed on Aug 31, 2021 08:50 Height - 63.00 in Weight - 142.4 lbs (LOW) BSA - 1.67 sq.m BMI - 25.23 Temperature - 98.8 F Pulse - 80 /min Respiration - 16 /min BP - 126/82 mm(hg) O2 Sat - 97 % Pain - 9 Fatigue - 6 Physical Examination: Constitutional - She looks pretty good generally, Eyes - Sclerae nonicteric. Conjunctivae clear, ENMT - No lesions noted in the oral cavity, Hematologic/Lymphatic - No cervical, clavicular or axillary adenopathy, Respiratory - Lungs sound clear with some decrease in air movement bilaterally, Cardiovascular - Heart rhythm is regular. There is no murmur, gallop, or rub noted, Abdomen - Moderately distended but soft. There does appear to be ascites. Liver and spleen do not appear enlarged. There is no abdominal mass noted and there is no inguinal adenopathy, Extremities - No edema, Neurologic - No focal neurologic deficits noted. Lab/Imaging: Test performed on Aug 04, 2021 15:25 Sodium 131 mmol/L Potassium 3.8 mmol/L Chloride 94 mmol/L CO2 23 mmol/L Anion Gap 17.8 BUN 6 mg/dL Creatinine 0.5 mg/dL Cr Clearance (Est) 124.3600 mL/min eGFR 124.6 mL/min Glucose 85 mg/dL Osmolality - Calculated 269 mOsm/kg Calcium 8.2 mg/dL Protein, Total 6.2 g/dL Albumin 3.4 g/dL Globulin 2.8 g/dL Bilirubin, Total 0.2 mg/dL ALT (SGPT) 12 U/L AST (SGOT) 16 U/L Alkaline Phosphatase 69 IU/L PT 13.80 SECONDS WBC 5.0 10 3/uL INR 1.03 RBC 3.84 10 6/uL HGB 11.1 g/dL HCT 34.5 % MCV 89.8 fl MCH 28.9 pg MCHC 32.2 g/dL RDW 12.5 % Platelet Count 543 10 3/cmm MPV 8.8 fL Neutrophils 2.54 10 3/uL Lymphocytes 1.4 10 3/uL Monocytes 0.8 10 3/uL Eosinophils 0.2 10 3/uL Basophils 0.1 10 3/uL Neutrophil % 50.7 % Lymphocyte % 27.9 % Monocyte % 16.0 % Eosinophil % 3.8 % Basophils % 1.0 % NRBC % 0 % CA-125 196.0 U/mL Problem List: 1. Recurrent ovarian cancer. 2. She has additional history of low-grade papillary urothelial cancer involving the bladder trigone for which she underwent TURBT in July 2019. She is on surveillance. 3. Degenerative arthritis/degenerative disease of the spine. 4. Fibromyalgia. 5. Anxiety/depression. 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 Her treatment included hysterectomy/bilateral salpingo-oophorectomy and omentectomy in October 2007 followed by adjuvant chemotherapy with 6 cycles of carboplatin/paclitaxel, completed in March 2008. She had evidence of recurrence of the ovarian cancer in the form of multiple omental lesions discovered at a laparoscopic cholecystectomy procedure in June 2021. Pathology on the omental biopsy was consistent with ovarian mixed malignant Tone-mucinous tumor. Clinically this was felt to be consistent with a low-grade ovarian neoplasm. A next generation sequence study on the biopsy showed no actionable mutations, but the PD-L1 expression was positive with CPS 15% and the the genomic CRISTOBAL was reported to be high at 18%. Her followup CT scan in July showed fairly rapid progeression of ascites, but ultrasound-guided paracentesis was not able to be performed due to insufficient fluid. Since then she has developed significant pain in the epigastric area extending down to the mid and lower abdomen, severe enough that it is interfering with her eating. With her symptoms worsening, she will be scheduled for repeat CT of the abdomen/pelvis. She indicates that she does get some pain relief with hydrocodone/APAP, but she has not wanted to take it more than twice a day. At least for now she is encouraged to take it more frequently. In the meantime, I will confer with Dr. Steiner regarding the results of the next generation sequencing and any additional recommendations he may have for further management of the ovarian cancer. Signed By: Reno Benitez M.D. <<Signature on File>>
== END 2021-08-31 08:21 | disposition home or self-care (01) ==
LOC: ONCMED 08:31
PROVIDERS: PCP Nurse Practitioner Family; Visit Provider Internal Medicine Medical Oncology
DX: C56.2 Malignant neoplasm of left ovary (principal); Z85.50 Personal history of malignant neoplasm of unspecified urinary tract organ; M47.9 Spondylosis, unspecified; M79.7 Fibromyalgia; F41.8 Other specified anxiety disorders; Z90.710 Acquired absence of both cervix and uterus; Z90.79 Acquired absence of other genital organ(s); Z90.722 Acquired absence of ovaries, bilateral
CPT/HCPCS: 99214

== ENCOUNTER 2021-09-21 10:28 | Outpatient (CLI) | payer MEDICARE, SELFPAY ==
--- NOTE | 2021-09-21 10:41 | CT_ITS ---
WS: [id number] CT ABDOMEN PELVIS TECHNIQUE: Contrast-enhanced CT of the abdomen and pelvis with coronal and sagittal reformatted image s. CLINICAL INFORMATION: OVARIAN CANCER COMPARISON: July 28, 2021 and April 24, 2021. PET/CT May 13, 2021 DLP: 973.[address] scans at [facility] use at least one of these dose optimization techniques: automated e xposure control; mA and/or kV adjustment per patient size (includes targeted exams where dose is matc hed to clinical indication); or iterative reconstruction. FINDINGS: Prior hysterectomy. Prior appendectomy and cholecystectomy. Moderate abdominal and pelvic ascites. Th is is increased compared to July 21, 2021. Induration in the upper abdominal mesentery appears pr ogressed compared to the prior studies suspicious for peritoneal carcinomatosis. Recommend correlatio n with laboratory markers. Peritoneal nodules in the LEFT upper quadrant mesentery appears progressed compared to the prior studies suspicious for peritoneal carcinomatosis. Normal liver. Normal portal vein and splenic vein. Lung bases are well aerated. Normal GE junction. N ormal pancreatic parenchymal enhancement. Normal celiac and SMA. Adrenal glands are normal. Normal re nal parenchymal enhancement. No hydronephrosis. Adrenal glands are normal. Normal caliber abdominal a sae. Aortic calcification. Urine distended bladder. Normal sigmoid colon. Mild to moderate colon constipation. No evidence of high-grade small or large b owel obstruction. No adenopathy in the pelvis or inguinal regions. Fat-containing umbilical hernia. Small amount of adjacent parasagittal fluid. Grade 1 anterolisthesis L4 on L5. CT/CT abdomen pelvis w con* [id number] IMPRESSION: 1. Moderate abdominal ascites is increased since July 20, 2021. 2. Evidence of suspected progressed metastatic disease with induration in the LEFT upper abdominal mesentery with nodularity suspicious for peritoneal carcin omatosis. This can be further evaluated PET/CT. 3. No other significant changes compared to previous. 4. Prior hysterectomy and cholecystectomy. 5. No other significant changes.
[2021-09-21] MEDS: iohexol 300 mg/mL 100 mL Btl IV (12:19)
[2021-09-21] MEDS: iohexol 300 mg/mL 50 mL Btl PO (12:19)
== END 2021-09-21 10:29 | disposition home or self-care (01) ==
PROVIDERS: PCP Nurse Practitioner Family; Visit Provider Internal Medicine Medical Oncology
DX: C56.9 Malignant neoplasm of unspecified ovary (principal); R18.8 Other ascites; Z90.710 Acquired absence of both cervix and uterus; Z90.49 Acquired absence of other specified parts of digestive tract
CPT/HCPCS: 74177

== ENCOUNTER 2021-09-29 08:32 | Outpatient (CLI) | payer MEDICARE, SELFPAY ==
--- NOTE | 2021-09-29 12:06 | ONC FU_ITS ---
Dr. Benitez Patient Follow-Up Note Patient: Tonya Pacheco Unit #: [id number]: 1955 Dicatated By: Reno Benitez M.D.Date of Visit:Sep 29, 2021 Onc Med Follow-up/Prog Note Chief Complaint: Ovarian cancer. 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 She had presented with a pelvic mass. At exploratory laparotomy she was found to have a hard mass between the uterus and rectum which appeared to be arising from the left ovary. The disease appeared to be growing into the rectal area, but there were no peritoneal implants noted and the disease appeared to be all confined within the pelvis. The procedure included hysterectomy, bilateral bilateral salpingo-oophorectomy and partial omentectomy. The tumor was completely excised, though she did require temporary placement of a diverting loop colostomy due to invasion of the adjacent sigmoid colon. Pathology showed grade 3/4 adenocarcinoma felt to be most consistent with serous adenocarcinoma, though it did show a papillary configuration. The tumor measured 11.8 cm in maximum dimension. There was focal penetration through the capsule of the left ovary into the included portion of the adjacent bowel wall. There was no involvement in the left fallopian tube or in the right ovary and right fallopian tube and there was no involvement in the omentum. She was given postoperative adjuvant chemotherapy with 6 cycles of carboplatin/Taxol, which she completed in March 2008. I had last seen her in December 2012. At that point there had been no evidence of recurrence of the ovarian cancer. 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 She has continued surveillance with Dr. Magaña. On 05/29/2021 she was seen by Dr. Crespo with worsening abdominal pain. A prior CT abdomen/pelvis from 04/24/2021 had shown evidence of a new cystic nodule in the left pelvis measuring 9 mm. The only other significant finding was diffuse fecal retention and constipation. She was scheduled to have further evaluation with a HIDA scan. However, in the meantime she had presented to the emergency room with biliary colic, and he opted to proceed with EGD and laparoscopic cholecystectomy on 06/17/2021. The EGD showed nonerosive gastritis. 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 By IHC the estrogen receptor showed weak to moderate positivity and the progesterone receptor showed moderate to strong positivity. A next generation sequencing study performed on the omental biopsy showed no actionable mutations. The tumor was MSI stable and a tumor mutational burden was low. However, it was positive for PD-L1 expression, CPS 15%, and the genomic CRISTOBAL was reported to be high at 18%. In July she had a [employer] oncology consultation with Dr. Singh. At the time she indicated she would not consider any further chemotherapy. He suggested the possibility of a trial of therapy with letrozole or with selumetinib and trametinib. As yet she has not had any further treatment. Her CT of the abdomen/pelvis on 07/28/2021 showed development of moderate abdominal and pelvic ascites but it was otherwise negative for acute intra-abdominal or pelvic abnormalities. She had an attempted ultrasound guided paracentesis on 08/14/2021, but the procedure was not performed due to insufficient fluid. Her other medical illnesses include degenerative arthritis/degenerative disease of the spine, fibromyalgia, and anxiety/depression. She has history of smoking 2 packs of cigarettes daily for 40 years. INTERIM HISTORY: Repeat CT abdomen/pelvis on 09/21/2021 showed moderate abdominal ascites, increased since July 2021. There was suspected progression of metastatic disease with induration in the left upper abdominal mesentery and nodularity suspicious for peritoneal carcinomatosis. She is seen today to discuss her further treatment options. I had previous discussions with Dr. Steiner, and it was his opinion that this tumor would not likely respond well to standard cytotoxic chemotherapy. However, with the tumor being positive for PD-L1 expression and hormone receptor positive, a combination of immunotherapy and endocrine therapy appeared to be a reasonable option for her. Since her last visit she has had a significant increase in swelling and discomfort. She has developed some associated bladder leakage. Her energy is been okay. 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 ECOG score is 1. She has good appetite. She has not had fever. She does have some sweating at night. She has not had sore mouth or throat. She has a smoker's cough. Her breathing is okay with normal activity, but she does get tired and out of breath with more strenuous activities. She does not complain of chest pain. She says she wakes up feeling a little nauseated. She has no other GI complaints. Bladder function has been okay except for the leakage. She has no significant joint or bone pain. She does not complain of headache or dizziness, and she has no focal neurologic symptoms. Medications: Crestor 1 Tablet (of 10 mg) Oral at bedtime, DULoxetine HCl 1 Tablet (of 60 mg) Capsule Delayed Release Particles Oral daily, DULoxetine HCl 1 Tablet (of 30 mg) Capsule Delayed Release Particles Oral daily, Esomeprazole Magnesium 1 Capsule (of 40 mg) Capsule Delayed Release Oral daily, Famotidine 1 Tablet (of 40 mg) Oral daily, Gabapentin 1 Tablet (of 600 mg) Oral at bedtime, HYDROcodone-Acetaminophen 1 - 2 Tablet (of 5-325 mg) Oral q 8 hours PRN, Lisinopril 1 Tablet (of 5 mg) Oral daily, Metoprolol Succinate ER 1 Tablet (of 25 mg) Tablet SR 24 HR Oral daily, Montelukast Sodium 1 Tablet Oral daily, Senokot S 1 Tablet (of 8.6-50 mg) Oral daily PRN Allergies: Codeine Phosphate, influenza virus vaccine tval , Morphine Sulfate, NSAIDs, Penicillin G Benzathine, and Sulfa Antibiotics. Vital Signs: Performed on Sep 29, 2021 08:42 Height - 63.00 in Weight - 147.8 lbs (HIGH) BSA - 1.70 sq.m BMI - 26.18 Temperature - 96.8 F (LOW) Pulse - 71 /min Respiration - 16 /min BP - 127/79 mm(hg) O2 Sat - 98 % Pain - 0 Fatigue - 4 Physical Examination: Constitutional - She looks pretty good generally, Eyes - Sclerae nonicteric. Conjunctivae clear, ENMT - No lesions noted in the oral cavity, Hematologic/Lymphatic - No cervical, clavicular or axillary adenopathy, Respiratory - Lungs sound clear with some decrease in air movement bilaterally, Cardiovascular - Heart rhythm is regular. There is no murmur, gallop, or rub noted, Abdomen - Moderately distended and firm. There does appear to be ascites. Liver and spleen do not appear enlarged. There is no abdominal mass noted and there is no inguinal adenopathy, Extremities - No edema, Neurologic - No focal neurologic deficits noted. Lab/Imaging: Test performed on Aug 04, 2021 15:25 Sodium 131 mmol/L Potassium 3.8 mmol/L Chloride 94 mmol/L CO2 23 mmol/L Anion Gap 17.8 BUN 6 mg/dL Creatinine 0.5 mg/dL Cr Clearance (Est) 124.3600 mL/min eGFR 124.6 mL/min Glucose 85 mg/dL Osmolality - Calculated 269 mOsm/kg Calcium 8.2 mg/dL Protein, Total 6.2 g/dL Albumin 3.4 g/dL Globulin 2.8 g/dL Bilirubin, Total 0.2 mg/dL ALT (SGPT) 12 U/L AST (SGOT) 16 U/L Alkaline Phosphatase 69 IU/L PT 13.80 SECONDS WBC 5.0 10 3/uL INR 1.03 RBC 3.84 10 6/uL HGB 11.1 g/dL HCT 34.5 % MCV 89.8 fl MCH 28.9 pg MCHC 32.2 g/dL RDW 12.5 % Platelet Count 543 10 3/cmm MPV 8.8 fL Neutrophils 2.54 10 3/uL Lymphocytes 1.4 10 3/uL Monocytes 0.8 10 3/uL Eosinophils 0.2 10 3/uL Basophils 0.1 10 3/uL Neutrophil % 50.7 % Lymphocyte % 27.9 % Monocyte % 16.0 % Eosinophil % 3.8 % Basophils % 1.0 % NRBC % 0 % CA-125 196.0 U/mL Problem List: 1. Recurrent ovarian cancer. 2. She has additional history of low-grade papillary urothelial cancer involving the bladder trigone for which she underwent TURBT in July 2019. She is on surveillance. 3. Degenerative arthritis/degenerative disease of the spine. 4. Fibromyalgia. 5. Anxiety/depression. 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 Her treatment included hysterectomy/bilateral salpingo-oophorectomy and omentectomy in October 2007 followed by adjuvant chemotherapy with 6 cycles of carboplatin/paclitaxel, completed in March 2008. She had evidence of recurrence of the ovarian cancer in the form of multiple omental lesions discovered at a laparoscopic cholecystectomy procedure in June 2021. Pathology on the omental biopsy was consistent with ovarian mixed malignant Tone-mucinous tumor. Clinically this was felt to be consistent with a low-grade ovarian neoplasm. By IHC, the tumor showed low to moderate estrogen receptor positivity and moderate to high progesterone receptor positivity. A next generation sequence study on the biopsy showed no actionable mutations, but the PD-L1 expression was positive with CPS 15% and the the genomic CRISTOBAL was reported to be high at 18%. Based on the pathologic findings, she is given the option to have a trial of immunotherapy with pembrolizumab in combination with endocrine therapy with exemestane, as it was felt to be unlikely that the tumor would have significant response to standard cytotoxic chemotherapy. I reviewed anticipated side effects with the treatment, and she indicates that she is wanting to proceed. As the treatment is off label, will be subject to verification of insurance coverage or availability through compassionate use. In the meantime, she will be scheduled for repeat ultrasound-guided paracentesis. Signed By: Reno Benitez M.D. <<Signature on File>>
== END 2021-09-29 08:33 | disposition home or self-care (01) ==
LOC: ONCMED 08:35
PROVIDERS: PCP Nurse Practitioner Family; Visit Provider Internal Medicine Medical Oncology
DX: C56.2 Malignant neoplasm of left ovary (principal); F41.9 Anxiety disorder, unspecified; F32.A Depression, unspecified; M47.9 Spondylosis, unspecified; M79.7 Fibromyalgia; Z79.899 Other long term (current) drug therapy
CPT/HCPCS: 99214

== ENCOUNTER 2021-10-08 10:38 | Day surgery (SDC) | payer MEDICARE, SELFPAY ==
[2021-10-07 12:13] VITALS: BMI 29.5
--- NOTE | 2021-10-08 10:46 | US_ITS ---
WS: [id number] ULTRASOUND-GUIDED PARACENTESIS CLINICAL INFORMATION: ASCITES COMPARISON: None. Procedure Informed consent: The risks, benefits, and alternatives of the procedure were discussed with the lester ent. Verbal and written consent was obtained. Timeout: A timeout was performed to confirm the correct patient, procedure, and site. Preparation: A suitable skin site was identified. The patient was prepped and draped in usual sterile fashion. Lidocaine 1% was used for local anesthesia. Catheter: 4 Egyptian One-step Yueh catheter. Side: LEFT Lower quadrant. Fluid Volume: 3250 ml Color: Clear yellow DISPOSITION: Discarded safely. Complications: None. Patient disposition: Discharged from the department in stable condition. US/US paracentesis abd w [id number] IMPRESSION: Uncomplicated ultrasound-guided paracentesis. Removal of 3250 cc
[2021-10-08 10:55] VITALS: BP 132/65; PULSE 74; RESP 20; TEMP 36.6; O2SAT 97
[2021-10-08 12:05] VITALS: BP 122/49; PULSE 70; RESP 18; O2SAT 98
[2021-10-08 12:15] VITALS: BP 104/59
--- NOTE | 2021-10-08 12:24 | PC.NURSE ---
1205- Paracentesis complete. Sat patient up on the side of the bed and she did not have any dizziness. BP 122/49 so I got her some juice to drink. 1215- BP 104/59 and she says that is perfect for her and that she does not have any dizziness. Walked patient to the bathroom and she did fine. She is so excited about how she feels. I walked her down the dobbins to go home and she did not have any problems.
== END 2021-12-08 15:17 | disposition home or self-care (01) ==
PROVIDERS: Radiology Neuroradiology; PCP Nurse Practitioner Family; Visit Provider Internal Medicine Medical Oncology
PROC: (CPT 49082; principal; 2021-10-08 12:00)
DX: R18.8 Other ascites (principal)
CPT/HCPCS: 49083

== ENCOUNTER 2021-10-13 14:23 | Outpatient (CLI) | payer MEDICARE, SELFPAY ==
[2021-10-13 15:12] LABS: Basophils # 0.1 10^3/uL (0.0-0.1); Basophils % 1.4 %; Eosinophils # 0.5 10^3/uL (0.0-0.8); Eosinophils % 9.8 %; Hematocrit 35.9 % (37.0-47.0); Hemoglobin 11.2 g/dL (11.5-15.3); Lymphocytes # 1.5 10^3/uL (0.8-4.8); Lymphocytes % 30.2 %; Mean Corpuscular HGB Conc 31.2 g/dL (30.0-36.0); Mean Corpuscular Hemoglobin 27.6 pg (28.0-34.0); Mean Corpuscular Volume 88.4 fl (81-99); Mean Platelet Volume 8.9 fL (7.4-10.4); Monocytes # 0.6 10^3/uL (0.2-0.9); Neutrophils # 2.36 10^3/uL (1.8-7.7); Neutrophils % 46.2 %; Nucleated Red Blood Cells % 0 %; Platelet Count 392 10^3/cmm (130-400); Red Blood Count 4.06 10^6/uL (4.1-5.3); Red Cell Distribution Width 15.5 % (12.1-15.1); White Blood Count 5.1 10^3/uL (4.0-10.0)
[2021-10-13 15:36] LABS: Alanine Aminotransferase 12 U/L (0-33); Albumin Level 3.5 g/dL (3.5-5.2); Alkaline Phosphatase 82 IU/L (35-105); Anion Gap 12.8 (5-19); Aspartate Amino Transferase 20 U/L (0-32); Blood Urea Nitrogen 11 mg/dL (8-23); CA 125 199.5 U/mL (0-35); Calcium 8.9 mg/dL (8.5-10.5); Carbon Dioxide 26 mmol/L (22-29); Chloride 96 mmol/L (98-107); Globulin 2.8 g/dL (1.3-4.6); Glomerular Filtration Rate 100.6 mL/min (90-130); Glucose 111 mg/dL (65-115); Osmolality Calculated 272 mOsm/kg (285-295); Potassium 3.8 mmol/L (3.5-5.1); Sodium 131 mmol/L (136-145); Thyroid Stimulating Hormone 3.53 uIU/mL (0.27-4.20); Total Bilirubin 0.2 mg/dL (0.15-1.2); Total Protein 6.3 g/dL (6.6-8.7)
[2021-10-13 15:48] LABS: Hepatitis A Antibody IgM Non-Reactive (Nonreactive); Hepatitis B Core AB, Total Non-Reactive (Nonreactive); Hepatitis B Surface Antigen Non-Reactive (Nonreactive); Hepatitis C Virus Antibody Non-Reactive (Nonreactive)
[2021-10-13 15:51] LABS: Hepatitis B Surface AB < 3.5 (11.5-1000)
== END 2021-10-13 14:24 | disposition home or self-care (01) ==
PROVIDERS: PCP Nurse Practitioner Family; Visit Provider Internal Medicine Medical Oncology
DX: C56.2 Malignant neoplasm of left ovary (principal); E03.9 Hypothyroidism, unspecified; R10.9 Unspecified abdominal pain
CPT/HCPCS: 36415; 80053; 84443; 85025; 86304; 86705; 86706; 86709; 86803; 87340

== ENCOUNTER 2021-10-14 08:24 | Outpatient (CLI) | payer MEDICARE, SELFPAY ==
[2021-10-14 09:47] LABS: Cortisol Random 4.88 ug/dL (2.47-19.5)
--- NOTE | 2021-10-14 09:55 | ONC FU_ITS ---
Eugenia Badillo Progress Note Patient: Tonya Pacheco Unit #: [id number]: 1955 Dicatated By: Eugenia Badillo N.P.Date of Visit:Oct 14, 2021 Onc MED Follow-up/Prog Note Chief Complaint: Ovarian cancer. 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 She had presented with a pelvic mass. At exploratory laparotomy she was found to have a hard mass between the uterus and rectum which appeared to be arising from the left ovary. The disease appeared to be growing into the rectal area, but there were no peritoneal implants noted and the disease appeared to be all confined within the pelvis. The procedure included hysterectomy, bilateral bilateral salpingo-oophorectomy and partial omentectomy. The tumor was completely excised, though she did require temporary placement of a diverting loop colostomy due to invasion of the adjacent sigmoid colon. Pathology showed grade 3/4 adenocarcinoma felt to be most consistent with serous adenocarcinoma, though it did show a papillary configuration. The tumor measured 11.8 cm in maximum dimension. There was focal penetration through the capsule of the left ovary into the included portion of the adjacent bowel wall. There was no involvement in the left fallopian tube or in the right ovary and right fallopian tube and there was no involvement in the omentum. She was given postoperative adjuvant chemotherapy with 6 cycles of carboplatin/Taxol, which she completed in March 2008. I had last seen her in December 2012. At that point there had been no evidence of recurrence of the ovarian cancer. 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 She has continued surveillance with Dr. Magaña. On 05/29/2021 she was seen by Dr. Crespo with worsening abdominal pain. A prior CT abdomen/pelvis from 04/24/2021 had shown evidence of a new cystic nodule in the left pelvis measuring 9 mm. The only other significant finding was diffuse fecal retention and constipation. She was scheduled to have further evaluation with a HIDA scan. However, in the meantime she had presented to the emergency room with biliary colic, and he opted to proceed with EGD and laparoscopic cholecystectomy on 06/17/2021. The EGD showed nonerosive gastritis. 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 By IHC the estrogen receptor showed weak to moderate positivity and the progesterone receptor showed moderate to strong positivity. A next generation sequencing study performed on the omental biopsy showed no actionable mutations. The tumor was MSI stable and a tumor mutational burden was low. However, it was positive for PD-L1 expression, CPS 15%, and the genomic CRISTOBAL was reported to be high at 18%. In July she had a [employer] oncology consultation with Dr. Singh. At the time she indicated she would not consider any further chemotherapy. He suggested the possibility of a trial of therapy with letrozole or with selumetinib and trametinib. As yet she has not had any further treatment. Her CT of the abdomen/pelvis on 07/28/2021 showed development of moderate abdominal and pelvic ascites but it was otherwise negative for acute intra-abdominal or pelvic abnormalities. She had an attempted ultrasound guided paracentesis on 08/14/2021, but the procedure was not performed due to insufficient fluid. Her other medical illnesses include degenerative arthritis/degenerative disease of the spine, fibromyalgia, and anxiety/depression. She has history of smoking 2 packs of cigarettes daily for 40 years. INTERIM HISTORY: Repeat CT abdomen/pelvis on 09/21/2021 showed moderate abdominal ascites, increased since July 2021. There was suspected progression of metastatic disease with induration in the left upper abdominal mesentery and nodularity suspicious for peritoneal carcinomatosis. Patient presents today for education on pembrolizumab. She is also starting exemestane for endocrine therapy. She states that she has been feeling well. Her appetite has been good. She denies fever, chills, night sweats. She denies shortness of breath. She cough that is chronic in nature. She denies chest pain. Her bowels and bladder are working well. She does have a abdominal tenderness from previous paracentesis secondary to ascites. She denies joint or muscle pain. She has a history of severe depression which is managed well with current medications. Review Of Symptoms: See above. Past Medical History: Anxiety Degenerative arthritis Degenerative disease of the spine Depression Fibromyalgia History of bladder cancer Past Surgical History: Appendectomy Carpal tunnel repair Colostomy reversal EGD and laparoscopic cholecystectomy in 2020 Colonoscopy in 2020 Transurethral destruction of bladder lesion in 2019 Hysterectomy/bilateral salpingo-oophorectomy/omentectomy and placement of diverting colostomy in 2007 Allergies: Codeine Phosphate, influenza virus vaccine tval , Morphine Sulfate, NSAIDs, Penicillin G Benzathine, and Sulfa Antibiotics. Medications: Crestor 1 Tablet (of 10 mg) Oral at bedtime DULoxetine HCl 1 Tablet (of 60 mg) Capsule Delayed Release Particles Oral daily DULoxetine HCl 1 Tablet (of 30 mg) Capsule Delayed Release Particles Oral daily Esomeprazole Magnesium 1 Capsule (of 40 mg) Capsule Delayed Release Oral daily Famotidine 1 Tablet (of 40 mg) Oral daily Gabapentin 1 Tablet (of 600 mg) Oral at bedtime HYDROcodone-Acetaminophen 1 - 2 Tablet (of 5-325 mg) Oral q 8 hours PRN Lisinopril 1 Tablet (of 5 mg) Oral daily Metoprolol Succinate ER 1 Tablet (of 25 mg) Tablet SR 24 HR Oral daily Montelukast Sodium 1 Tablet Oral daily Senokot S 1 Tablet (of 8.6-50 mg) Oral daily PRN Family History: Family history significant for mother having of breast cancer at age 62. A paternal aunt had breast cancer and a paternal uncle had non-Hodgkin's lymphoma. Social History: Ms. Pacheco is and she is an unknown. Ms. Pacheco has never smoked. She has no history of drinking. She has history of smoking 2 packs of cigarettes daily for 40 years. She does not drink alcohol. Physical Examination: Performed on Oct 14, 2021 09:38: Height - 63.00 in, Weight - 141.0 lbs (LOW), BSA - 1.67 sq.m, BMI - 24.98, Temperature - 97.8 F (LOW), Pulse - 82 /min, Respiration - 16 /min, BP - 100/67 mm(hg), O2 Sat - 98 %, Pain - 8, and Fatigue - 5. Performance Status: 1 - No physically strenuous activity, but ambulatory and able to carry out light or sedentary work (e.g. office work, light house work). (ECOG) Constitutional Alert, cooperative, oriented. Mood and affect appropriate. Appears close to chronological age. Well nourished. Well developed. Head Normocephalic; no scars. Respiratory Lungs are clear to auscultation without rhonchi or wheezing. Cardiovascular Regular rate and rhythm of heart without murmurs, gallops or rubs. Abdomen Bowel sounds positive; generalized tenderness Extremities No visible deformities, no cyanosis, clubbing or edema. Pulses 3+ and equal bilaterally. Musculoskeletal No tenderness or swelling, normal range of motion without obvious weakness. Psychiatric Alert and oriented times three. Coherent speech. Verbalizes understanding of our discussions today. Laboratory: Test performed on Aug 04, 2021 15:25 Sodium 131 mmol/L Potassium 3.8 mmol/L Chloride 94 mmol/L CO2 23 mmol/L Anion Gap 17.8 BUN 6 mg/dL Creatinine 0.5 mg/dL Cr Clearance (Est) 124.3600 mL/min eGFR 124.6 mL/min Glucose 85 mg/dL Osmolality - Calculated 269 mOsm/kg Calcium 8.2 mg/dL Protein, Total 6.2 g/dL Albumin 3.4 g/dL Globulin 2.8 g/dL Bilirubin, Total 0.2 mg/dL ALT (SGPT) 12 U/L AST (SGOT) 16 U/L Alkaline Phosphatase 69 IU/L PT 13.80 SECONDS WBC 5.0 10 3/uL INR 1.03 RBC 3.84 10 6/uL HGB 11.1 g/dL HCT 34.5 % MCV 89.8 fl MCH 28.9 pg MCHC 32.2 g/dL RDW 12.5 % Platelet Count 543 10 3/cmm MPV 8.8 fL Neutrophils 2.54 10 3/uL Lymphocytes 1.4 10 3/uL Monocytes 0.8 10 3/uL Eosinophils 0.2 10 3/uL Basophils 0.1 10 3/uL Neutrophil % 50.7 % Lymphocyte % 27.9 % Monocyte % 16.0 % Eosinophil % 3.8 % Basophils % 1.0 % NRBC % 0 % CA-125 196.0 U/mL Impression: 1. Recurrent ovarian cancer. 2. She has additional history of low-grade papillary urothelial cancer involving the bladder trigone for which she underwent TURBT in July 2019. She is on surveillance. 3. Degenerative arthritis/degenerative disease of the spine. 4. Fibromyalgia. 5. Anxiety/depression. 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 Her treatment included hysterectomy/bilateral salpingo-oophorectomy and omentectomy in October 2007 followed by adjuvant chemotherapy with 6 cycles of carboplatin/paclitaxel, completed in March 2008. She had evidence of recurrence of the ovarian cancer in the form of multiple omental lesions discovered at a laparoscopic cholecystectomy procedure in June 2021. Pathology on the omental biopsy was consistent with ovarian mixed malignant Tone-mucinous tumor. Clinically this was felt to be consistent with a low-grade ovarian neoplasm. By IHC, the tumor showed low to moderate estrogen receptor positivity and moderate to high progesterone receptor positivity. A next generation sequence study on the biopsy showed no actionable mutations, but the PD-L1 expression was positive with CPS 15% and the the genomic CRISTOBAL was reported to be high at 18%. We discussed her lab results including her CEA 125 which is increased slightly from 196 to 199.5. Education and handouts provided on pembrolizumab. Indications for use and side effects were discussed in detail. We also discussed her endocrine therapy with exemestane. She denies any questions at the time. She will receive her Keytruda treatment today and return to clinic in 3 weeks with CBC, CMP, TSH, CA-125. Signed By: Eugenia Badillo NMohamud <<Signature on File>>
[2021-10-14] MEDS: sodium chloride 0.9% 250 ML 125 ML IV (10:15)
== END 2021-10-14 08:25 | disposition home or self-care (01) ==
PROVIDERS: PCP Nurse Practitioner Family; Visit Provider Nurse Practitioner Family
DX: Z51.12 Encounter for antineoplastic immunotherapy (principal); C56.2 Malignant neoplasm of left ovary; F41.9 Anxiety disorder, unspecified; F32.A Depression, unspecified; M47.9 Spondylosis, unspecified; M79.7 Fibromyalgia; F17.210 Nicotine dependence, cigarettes, uncomplicated
CPT/HCPCS: 82533; 96413; 99215; J7050; J9271

== ENCOUNTER 2021-10-20 14:10 | Inpatient (IN) | payer MEDICARE, SELFPAY ==
[2021-10-20] VITALS (14 sets, daily range): BP systolic 99–145; BP diastolic 59–85; PULSE 78–99; RESP 15–26; TEMP 36.5–36.9; O2SAT 90–99; BMI 28.3; BMI 30.8
--- NOTE | 2021-10-20 | XRR_ITS ---
PROCEDURE INFORMATION: Exam: XR Chest Exam date and time: 10/20/2021 4:24 PM Age: 66 years old Clinical indication: Device placement; Ng tube; Additional info: Ng placement TECHNIQUE: Imaging protocol: XR of the chest. Views: 1 view. COMPARISON: CT abdomen pelvis w con* [id number] 10/20/2021 3:31 PM FINDINGS: Tubes, catheters and devices: Gastric tube with tip in the proximal stomach and side port at the GE junction. Lungs: Unremarkable. No consolidation. Pleural spaces: Unremarkable. No pleural effusion. No pneumothorax. Heart/Mediastinum: Unremarkable. No cardiomegaly. Bones/joints: Unremarkable. XR/XR chest 1V portable [id number] IMPRESSION: 1. No acute finding in the chest. 2. Gastric tube tip in the proximal stomach.
--- NOTE | 2021-10-20 14:53 | CT_ITS ---
WS: [id number] CT ABDOMEN PELVIS TECHNIQUE: Contrast-enhanced CT of the abdomen and pelvis with coronal and sagittal reformatted image s. CLINICAL INFORMATION: abd pain COMPARISON: CT September 21, 2021 DLP: 1421.[address] scans at [facility] use at least one of these dose optimization techniques: automated e xposure control; mA and/or kV adjustment per patient size (includes targeted exams where dose is matc hed to clinical indication); or iterative reconstruction. FINDINGS: Distended loops of small bowel in the midabdomen with air-fluid levels and mucosal enhancement. This is new compared to previous compatible with small bowel obstruction. Nodular areas of peritoneal carc inomatosis partially obscured by ascites. Terminal ileum is decompressed. Swirling in the RIGHT mid a bdominal mesentery unchanged compared to the prior examinations. Small bowel obstruction may be relat ed to adhesions or tethering from peritoneal carcinomatosis. Normal colon. Prior postoperative changes hysterectomy and cholecystectomy. Prior appendectomy. Moderate abdominal ascites slightly progressed compared to the prior examination. Small LEFT pleural effusion appears ne w from previous with LEFT lower lobe atelectasis. RIGHT lung base is well aerated. Diffuse fatty infi ltration liver. Cholecystectomy. Mild chronic intrahepatic biliary ductal dilatation unchanged. Michelle l portal vein and splenic vein. Fatty atrophy of the pancreas. Normal GE junction. Normal spleen. Nor mal caliber abdominal aorta. Adrenal glands are normal. Normal renal parenchymal enhancement. No hydr onephrosis. Rectosigmoid constipation. Fat-containing umbilical hernia. Small amount of fluid along the RIGHT fat -containing Umbilical hernia. No herniated bowel. Portal vein and spine vein are patent. Celiac and SMA are patent. CT/CT abdomen pelvis w con* [id number] IMPRESSION: 1. Small pleural effusion with compressive atelectasis LEFT lower lobe is new from previous. 2. Moderate abdominal ascites slightly progressed compared to previous. 3. Dilated fluid-filled loops of small bowel with air-fluid levels and mucosal enhancement in the midabdomen. Findings compatible with small bowel obstructio n. Distal ileum is decompressed. Small bowel obstruction may be due to adhesion s or tethering considering peritoneal carcinomatosis 4. Mild colonic constipation. 5. No free air. 6. Stable findings of peritoneal carcinomatosis partially obscured by the asci brandon. Notified Joe Washington DO at 10/20/2021 3:57 PM.
--- NOTE | 2021-10-20 14:53 | ECG_ITS ---
[facility] Test Date: 2021-10-20 Pat Name: Tonya Pacheco Department: Room: Gender: Female Supervisor Fusing Room: : 1955 Requested By: Joe Figueroa Order Number: [id number] Bob MD: Xiomara May M.D. Measurements Intervals [place] Rate: 90 P: 33 HI: 144 QRS: 47 QRSD: 86 T: 50 QT: 352 QTc: 433 Interpretive Statements SINUS RHYTHM No previous ECG available for comparison Electronically Signed On 10-20-2021 16:38:37 CDT by Xiomara May M.D. [id number]
--- NOTE | 2021-10-20 15:06 | W.ED.ABDPA2 ---
HPI - Abdominal Pain General: Chief Complaint: Abdominal Pain Stated Complaint: upper abd pain Time Seen by Provider: 10/20/21 14:52 Source: patient Mode of arrival: ambulatory Limitations: no limitations History of Present Illness: 66-year-old female presents emergency room with complaint of abdominal bloating and discomfort with nausea began yesterday. Patient has a history of ovarian cancer discovered at the time of cholecystectomy. Week ago she had paracentesis with a took 3 L off. She denies any chest pain denies any vomiting or diarrhea denies any dysuria urgency or frequency. MD elicited complaint: abdominal pain Pertinent past history: other (Ovarian CA) Onset (ago): day(s) Pain Consistency: constant Location: Diffuse Severity: moderate Quality: cramping Radiation: none Migration to: no migration Exacerbating factors: nothing Relieving factors: nothing Associated Symptoms: Reports bloating; Denies anorexia, belching, change in bowel habits, change in stool character, chills, coffee ground emesis, constipation, GI cramping, diarrhea, dyspepsia, dysuria, excessive flatus, fever(s), heartburn, hematochezia, hematuria, hematemesis, fecal incontinence, loose stools, melena, nausea, poor appetite, syncope and vomiting Review of Systems Const: Denies: fever(s) or chills Card: Denies: syncope GI: Reports: bloating; Denies: nausea, vomiting, hematemesis, coffee ground emesis, heartburn, diarrhea, constipation, GI cramping, belching, excessive flatus, fecal incontinence, change in bowel habits, change in stool character, hematochezia or melena : Denies: dysuria or hematuria [facility] ED PFSH: Medical History Abdominal carcinomatosis Anxiety Ascites Cancer of trigone of urinary bladder Depression Fibromyalgia History of urinary retention Hyponatremia Malignant Tone tumor of left ovary Ovarian cancer Polyuria Urgency incontinence Surgical History H/O esophagogastroduodenoscopy (06/17/21) History of carpal tunnel repair History of colonoscopy 2020 History of colostomy reversal History of transurethral destruction of bladder lesion Status post appendectomy Status post bilateral oophorectomy Status post colostomy Status post laparoscopic cholecystectomy (06/17/21) Social History Alcohol intake: never Adopted: No Caregiver/support person: No Lives independently: No Household members: spouse Marital status: Current occupational status: retired History of recent travel: No Current gender identity: Female Physical Exam Const: GENERAL APPEARANCE: cooperative and comfortable ORIENTATION/CONSCIOUSNESS: Yes awake, Yes oriented to person, Yes oriented to place and Yes oriented to time HENMT: COMMON NORMALS: normocephalic, atraumatic and hearing grossly normal bilaterally HEAD & SCALP: normocephalic and atraumatic Neck/C-Spine: COMMON NORMALS: no JVD Resp: COMMON NORMALS: normal respiratory effort, No retractions, No use of accessory muscles and clear to auscultation bilaterally AUSCULTATION: clear to auscultation bilaterally Cardio: COMMON NORMALS: no JVD, regular rate, regular rhythm and No murmurs present (Cardio) RATE: regular rate RHYTHM: regular rhythm GI: INSPECTION: Yes abdominal distension and Yes Fluid wave present AUSCULTATION: Yes Absent bowel sounds PALPATION: Yes Tenderness to palpation present (GI) (Diffuse) and No Guarding due to palpation present (GI) PERCUSSION: Fluid wave present : COMMON NORMALS: Yes no CVA tenderness BLADDER/KIDNEY EXAM: Yes no CVA tenderness Back/Pelvis: COMMON NORMALS: no CVA tenderness Extremity: COMMON NORMALS: normal to inspection, capillary refill normal, no clubbing, cyanosis or edema, no calf tenderness and no pedal edema Neuro: SENSORIUM/ORIENTATION: Yes oriented to person, Yes oriented to place and Yes oriented to time Skin: COMMON NORMALS: no rashes or lesions noted GENERAL SKIN EXAM: no rashes or lesions noted Course Vital Signs: Vital signs: Vital Signs Temperature 97.9 F 10/23/21 11:23 Pulse Rate 84 10/23/21 11:23 Respiratory Rate 14 10/23/21 11:23 Blood Pressure 119/74 10/23/21 11:23 Pulse Oximetry 91 10/23/21 11:23 MDM - Abdominal Pain Medical Decision Making CT shows small bowel obstruction will admit NG placed discussed with hospitalist consult general surgery, Dr. Hennessy. Medical Records I reviewed the patient's medical records. Lab Data I reviewed the patient's lab results. : 10/23/21 04:21 10/23/21 04:21 Labs/Radiology: Radiology Impressions Chest X-Ray 10/20/21 00:00 IMPRESSION: 1. No acute finding in the chest. 2. Gastric tube tip in the proximal stomach. Abdomen/Pelvis CT 10/20/21 14:53 IMPRESSION: 1. Small pleural effusion with compressive atelectasis LEFT lower lobe is new from previous. 2. Moderate abdominal ascites slightly progressed compared to previous. 3. Dilated fluid-filled loops of small bowel with air-fluid levels and mucosal enhancement in the midabdomen. Findings compatible with small bowel obstruction. Distal ileum is decompressed. Small bowel obstruction may be due to adhesions or tethering considering peritoneal carcinomatosis 4. Mild colonic constipation. 5. No free air. 6. Stable findings of peritoneal carcinomatosis partially obscured by the ascites. Notified Joe Washington DO at 10/20/2021 3:57 PM. Paracentesis Ultrasound 10/21/21 13:00 IMPRESSION: Uncomplicated paracentesis yielding 3500 ml of peritoneal fluid. Peritoneal fluid collected for analysis as requested. Laboratory Results WBC 6.1 10^3/uL (4.0-10.0) 10/20/21 14:34 RBC 4.68 10^6/uL (4.1-5.3) 10/20/21 14:34 Hgb 13.2 g/dL (11.5-15.3) 10/20/21 14:34 Hct 40.7 % (37.0-47.0) 10/20/21 14:34 MCV 87.0 fl (81-99) 10/20/21 14:34 MCH 28.2 pg (28.0-34.0) 10/20/21 14:34 MCHC 32.4 g/dL (30.0-36.0) 10/20/21 14:34 RDW 15.9 % (12.1-15.1) H 10/20/21 14:34 Plt Count 549 10^3/cmm (130-400) H 10/20/21 14:34 MPV 9.1 fL (7.4-10.4) 10/20/21 14:34 Neut % (Auto) 50.5 % 10/20/21 14:34 Lymph % (Auto) 23.8 % 10/20/21 14:34 [place] % (Auto) 14.0 % 10/20/21 14:34 Eos % (Auto) 10.2 % 10/20/21 14:34 Baso % (Auto) 1.0 % 10/20/21 14:34 Neut # (Auto) 3.07 10^3/uL (1.8-7.7) 10/20/21 14:34 Lymph # (Auto) 1.5 10^3/uL (0.8-4.8) 10/20/21 14:34 [place] # (Auto) 0.9 10^3/uL (0.2-0.9) 10/20/21 14:34 Eos # (Auto) 0.6 10^3/uL (0.0-0.8) 10/20/21 14:34 Baso # (Auto) 0.1 10^3/uL (0.0-0.1) 10/20/21 14:34 Nucleated RBC % (auto) 0 % 10/20/21 14:34 Nucleated RBCs # 0.0 /100WBC 10/20/21 14:34 PT 15.20 SECONDS (12.1-14.9) H 10/20/21 15:57 INR 1.16 (0.8-1.2) 10/20/21 15:57 Sodium 129 mmol/L (136-145) L 10/20/21 15:51 Potassium 3.3 mmol/L (3.5-5.1) L 10/20/21 15:51 Chloride 98 mmol/L (98-107) 10/20/21 15:51 Carbon Dioxide 20 mmol/L (22-29) L 10/20/21 15:51 Anion Gap 14.3 (5-19) 10/20/21 15:51 BUN 11 mg/dL (8-23) 10/20/21 15:51 Creatinine 0.5 mg/dL (0.5-0.9) 10/20/21 15:51 GFR Calculation 124.2 mL/min (90-130) 10/20/21 15:51 Glucose 112 mg/dL (65-115) 10/20/21 15:51 Calculated Osmolality 268 mOsm/kg (285-295) L 10/20/21 15:51 Calcium 7.0 mg/dL (8.5-10.5) L 10/20/21 15:51 Iron 22 ug/dL (37-145) L 10/20/21 15:57 TIBC 137 mcg/dl 10/20/21 15:57 % Saturation 16.0 % (20-50) L 10/20/21 15:57 Unsat Iron Binding 115 ug/dL (112-347) 10/20/21 15:57 Total Bilirubin 0.3 mg/dL (0.15-1.2) 10/20/21 15:51 AST 10 U/L (0-32) 10/20/21 15:51 ALT 6 U/L (0-33) 10/20/21 15:51 Alkaline Phosphatase 45 IU/L (35-105) 10/20/21 15:51 Total Protein 4.5 g/dL (6.6-8.7) L 10/20/21 15:51 Albumin 2.4 g/dL (3.5-5.2) L 10/20/21 15:51 Globulin 2.1 g/dL (1.3-4.6) 10/20/21 15:51 Lipase 9 U/L (13-60) L 10/20/21 15:51 Discharge Plan Discharge Patient Disposition: Admitted As Inpatient Admit Provider: Richie Chang Clinical Impression: Small bowel obstruction, Ovarian cancer, Ascites, Hyponatremia Condition: Stable Discharge Orders: Discharge Order (Routine); Ordered 10/23/21 Ordered By: Richie Chang Discharge Diet: Regular Discharge Activity: Resume usual activity and Increase activity as tolerated Coding Level of Care Code ED Budget Officer for Chg Fwd Exam Comprehensive
[2021-10-20 15:10] LABS: Basophils # 0.1 10^3/uL (0.0-0.1); Eosinophils # 0.6 10^3/uL (0.0-0.8); Eosinophils % 10.2 %; Hematocrit 40.7 % (37.0-47.0); Hemoglobin 13.2 g/dL (11.5-15.3); Lymphocytes # 1.5 10^3/uL (0.8-4.8); Lymphocytes % 23.8 %; Mean Corpuscular HGB Conc 32.4 g/dL (30.0-36.0); Mean Corpuscular Hemoglobin 28.2 pg (28.0-34.0); Mean Platelet Volume 9.1 fL (7.4-10.4); Monocytes # 0.9 10^3/uL (0.2-0.9); Neutrophils # 3.07 10^3/uL (1.8-7.7); Neutrophils % 50.5 %; Nucleated Red Blood Cells % 0 %; Platelet Count 549 10^3/cmm (130-400); Red Blood Count 4.68 10^6/uL (4.1-5.3); Red Cell Distribution Width 15.9 % (12.1-15.1); White Blood Count 6.1 10^3/uL (4.0-10.0)
[2021-10-20] MEDS: ondansetron 2 mg/ML SDV 2 mL 4 MG IVP ×2 (15:14→23:09)
[2021-10-20] MEDS: morphine 4 mg/mL SDV 1 mL IVP (15:14)
[2021-10-20] MEDS: iohexol 300 mg/mL 100 mL Btl IV (15:36)
--- NOTE | 2021-10-20 16:14 | PM.HP ---
Providers/Chief Complaint Primary Care Provider: JARED Rodriguez Chief Complaint: upper abd pain History of Present Illness Tonya Pacheco is a 66 year old female with past medical history of depression, degenerative disease of spine, fibromyalgia, bladder cancer, grade 3 adenocarcinoma of left ovary, stage IIb, recent diagnosis of peritoneal carcinomatosis with recent paracentesis when around 3 L of fluid was taken off presented to the ER today with complaint of abdominal bloating and discomfort along with nausea for last 1 day. Patient states after paracentesis she felt better for last next 4 days but then started having abdominal fullness again worsening daily. Last bowel movement was today. Normal. Denies any melena, vomiting. Review of Systems General: Reports: 10 or more systems reviewed and unremarkable except in HPI and below Const: Denies: fever(s), chills, body aches, change in appetite, change in weight, malaise, night sweats, diaphoresis, change in sleep pattern, daytime sleepiness or snoring Eyes: Denies: change in vision, blurry vision, photophobia, eye discomfort or eye discharge ENMT: Denies: throat pain, enlarged tonsils, hoarseness, mouth pain, oral sores, dry mouth, tinnitus, nasal congestion or post nasal drip Card: Denies: chest pain, palpitations, irregular heart rhythm, edema, swelling of feet/ankles, lightheadedness, syncope, pre-syncope, dyspnea on exertion, orthopnea, leg pain with exertion or acrocyanosis Resp: Denies: dyspnea, productive cough, non-productive cough, wheezing, stridor, pain on inspiration, change in phlegm color, hemoptysis or chest congestion GI: Denies: abdominal pain, nausea, vomiting, hematemesis, coffee ground emesis, dysphagia, heartburn, diarrhea, constipation, bloating, GI cramping, change in bowel habits, pain on defecation, hematochezia or melena : Denies: flank pain, dysuria, urinary frequency, urinary urgency, urinary hesitancy, nocturia or hematuria Musc: Denies: neck pain, back pain, extremity pain, joint pain, joint swelling, joint redness, joint stiffness or limited range of motion Neuro: Denies: headache(s), numbness in extremities, weakness in extremities, sensory changes, lack of coordination, difficulty walking, frequent falls, dizziness, vertigo, confusion, Slurred speech present, difficulty communicating thoughts or seizure-like activity Psych: Denies: anxiety, depression, mood swings, panic attacks, hopelessness or irritability Endo: Denies: polyuria, polydipsia, tired all the time, cold intolerance, excessive sweating, flushing or heat intolerance Kiran/Lymph: Denies: easy bruising or easy bleeding All/Imm: Denies: tongue swelling, facial swelling or acute wheezing Medications/Allergies Home Medications Medication Instructions Recorded Confirmed Last Taken Type gabapentin 600 mg tablet 600 mg PO BEDTIME tab 08/08/19 10/20/21 10/19/21 History cetirizine 5 mg-pseudoephedrine ER 1 tab PO BID PRN 04/09/21 10/20/21 2 Weeks Ago History 120 mg tablet,extended ~07/31/21 release,12hr (Zyrtec-D) duloxetine 60 mg capsule,delayed 90 mg PO BEDTIME cap 04/09/21 10/20/21 10/19/21 History release (Cymbalta) lisinopril 5 mg tablet 5 mg PO BEDTIME 04/09/21 10/20/21 10/19/21 History metoprolol succinate 25 mg 25 mg PO BEDTIME 04/09/21 10/20/21 10/19/21 History tablet,extended release 24 hr montelukast 10 mg tablet 10 mg PO BEDTIME 04/09/21 10/20/21 10/19/21 History hydrocodone 5 mg-acetaminophen 325 1 tab PO Q6H PRN #20 tab 06/17/21 10/20/21 10/20/21 12:30 Rx mg tablet exemestane 25 mg tablet 25 mg PO QAM 10/20/21 10/20/21 10/20/21 History pantoprazole 40 mg tablet,delayed 40 mg PO BEDTIME 10/20/21 10/20/21 10/19/21 History release rosuvastatin 10 mg tablet 10 mg PO BEDTIME 10/20/21 10/20/21 10/19/21 History Allergies Allergy/AdvReac Type Severity Reaction Status Date / Time codeine Allergy ADR-Vomitin Verified 10/20/21 14:46 g influenza virus vaccine Allergy ALGY-Anaphy Verified 10/20/21 14:46 tval,purif- laxis morphine Allergy ADR-Vomitin Verified 10/20/21 14:46 g NSAIDS (Non-Steroidal Allergy ALGY-Hives Verified 10/20/21 14:46 Anti-Inflamma Penicillins Allergy ALGY-Hives Verified 10/20/21 14:46 Sulfa (Sulfonamide Allergy ALGY-Hives Verified 10/20/21 14:46 Antibiotics) PFSH Acute PFSH: Medical History (Updated 10/20/21 @ 16:34 by Richie Chang MD) Abdominal carcinomatosis Anxiety Ascites Cancer of trigone of urinary bladder Depression Fibromyalgia History of urinary retention Hyponatremia Malignant Tone tumor of left ovary Ovarian cancer Polyuria Urgency incontinence Surgical History H/O esophagogastroduodenoscopy (06/17/21) History of carpal tunnel repair History of colonoscopy 2020 History of colostomy reversal History of transurethral destruction of bladder lesion Status post appendectomy Status post bilateral oophorectomy Status post colostomy Status post laparoscopic cholecystectomy (06/17/21) Social History Alcohol intake: never Adopted: No Caregiver/support person: No Lives independently: No Household members: spouse Marital status: Current occupational status: retired History of recent travel: No Current gender identity: Female Vitals/I&O/Wt Last Vital Signs Temp 97.7 F 10/20/21 14:19 Pulse 78 10/20/21 15:50 Resp 25 H 10/20/21 15:50 BP 116/59 10/20/21 15:50 Pulse Ox 93 10/20/21 15:50 Weight last 48 hrs Weight 63.503 kg Physical Exam Narrative: General: No acute distress, AO x3, pleasant HEENT: PERRLA, pupils bilaterally equal and reactive Chest: Normal vesicular breath sounds, no added sounds, equal good air entry bilaterally CVS: S1-S2 regular, no murmurs, no tachycardia, no gallops, no rubs Abdomen: Soft, distended, tender generalized no organomegaly, bowel sounds sluggish, post laparoscopic scars present. Neuro: No focal deficits, no facial deformity, AO x3, power 5/5 in all limbs Data : 10/20/21 14:34 10/20/21 15:51 A&P Assessment and plan (1) Small bowel obstruction: Status: Acute (2) Ascites: Status: Acute (3) Hyponatremia: Status: Acute (4) Abdominal carcinomatosis: Status: Acute (5) Malignant Tone tumor of left ovary: Status: Acute Plan Small bowel obstruction: Conservative treatment. Bowel rest, NG tube placement. NPO. Protonix, Zofran as needed. Surgery has been consulted from the ER. Ambulation, out of bed to chair. Ascites: Small bowel obstruction could be secondary to SBP though unlikely. Request for ultrasound-guided paracentesis diagnostic and therapeutic. Fluid studies. For now start patient on imipenem as patient is allergic to penicillin. Blood cultures. Hyponatremia: Chronic. Cannot rule out SIADH. Normal saline at 50 cc/h. Urine lites, urinalysis. Check BMP daily. Replace potassium. We will try to change oral to IV medication as best possible. IV metoprolol 2.5 mg every 4 hour as needed. Full code. NPO. Heparin 5000 every 12 hourly. Protonix Attestations Medical Necessity Statement*: Admission for more than 2 midnights for management of small bowel obstruction in a patient with baseline abdominal carcinomatosis Time Spent in Patient Care: Greater than 35 minutes Coding Level of Care Code Acute [place] Operator for dashawn Butt Diagnoses Small bowel obstruction K56.609 Malignant Tone tumor of left ovary C56.2 Abdominal carcinomatosis C76.2 Hyponatremia E87.1 Ascites R18.8
--- NOTE | 2021-10-20 16:23 | PC.PHAR ---
pt states she takes care of her own medication-pt states she is no longer taking famotidine 40mg daily filled on 07/22/21 90d/s or nexium 40mg daily filled on 07/22/21 90d/s-
[2021-10-20 16:36] LABS: Alanine Aminotransferase 6 U/L (0-33); Albumin Level 2.4 g/dL (3.5-5.2); Alkaline Phosphatase 45 IU/L (35-105); Anion Gap 14.3 (5-19); Aspartate Amino Transferase 10 U/L (0-32); Blood Urea Nitrogen 11 mg/dL (8-23); Carbon Dioxide 20 mmol/L (22-29); Chloride 98 mmol/L (98-107); Globulin 2.1 g/dL (1.3-4.6); Glomerular Filtration Rate 124.2 mL/min (90-130); Glucose 112 mg/dL (65-115); Lipase 9 U/L (13-60); Osmolality Calculated 268 mOsm/kg (285-295); Potassium 3.3 mmol/L (3.5-5.1); Sodium 129 mmol/L (136-145); Total Bilirubin 0.3 mg/dL (0.15-1.2); Total Protein 4.5 g/dL (6.6-8.7)
[2021-10-20 16:52] LABS: INR 1.16 (0.8-1.2)
--- NOTE | 2021-10-20 17:14 | PC.NURSE ---
PT NG TUBE PLACED. X-RAY CALLED FOR PLACEMENT VERIFICATION.
[2021-10-20 17:16] LABS: Iron 22 ug/dL (37-145); Total Iron Binding Capacity 137 mcg/dl; Unsaturated Iron Binding 115 ug/dL (112-347)
--- NOTE | 2021-10-20 17:18 | PC.NURSE ---
PT ON CONTINUOUS BEDSIDE CARDIAC, BP AND O2 MONITOR.
--- NOTE | 2021-10-20 17:21 | P.CONIM_ITS ---
Providers/Reason For Consult Consulting Physician/Specialty*: General Surgery Nilton Hennessy MD Reason for Consult*: Peritoneal carcinomatosis, possible small bowel obstruct ion. 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 She underwent surgery and postoperative adjuvant chemotherapy. She was found to have some peritoneal implants consistent with an ovarian malignancy in April 2021 during a laparoscopic cholecystectomy. She initially refused any further chemotherapy. She finally decided pursue immunotherapy just recently after the development of some abdominal ascites I believe her first treatment was just last week. They are trying to keep me alive with immunotherapy. She underwent paracentesis a couple of weeks ago. She says all of the fluid seems to have reaccumulated. She says yesterday she started getting diffuse abdominal cramping. She came with to hospital today and a CAT scan showed possible evidence of a small bowel obstruction. Despite this, she says that she thinks she is still passing flatus and she actually had a normal bowel movement this morning. A nasogastric tube was placed. She remains uncomfortable, however. Review of Systems General: Reports: 10 or more systems reviewed and unremarkable except in HPI and below GI: Reports: abdominal pain, bloating and GI cramping Medications/Allergies Home Medications Medication Instructions Recorded Confirmed Last Taken Type gabapentin 600 mg tablet 600 mg PO BEDTIME tab 08/08/19 10/20/21 10/19/21 History cetirizine 5 mg-pseudoephedrine ER 1 tab PO BID PRN 04/09/21 10/20/21 2 Weeks Ago History 120 mg tablet,extended ~07/31/21 release,12hr (Zyrtec-D) duloxetine 60 mg capsule,delayed 90 mg PO BEDTIME cap 04/09/21 10/20/21 10/19/21 History release (Cymbalta) lisinopril 5 mg tablet 5 mg PO BEDTIME 04/09/21 10/20/21 10/19/21 History metoprolol succinate 25 mg 25 mg PO BEDTIME 04/09/21 10/20/21 10/19/21 History tablet,extended release 24 hr montelukast 10 mg tablet 10 mg PO BEDTIME 09/04/2110/20/21 10/19/21 History hydrocodone 5 mg-acetaminophen 325 1 tab PO Q6H PRN #20 tab 06/17/21 10/20/21 10/20/21 12:30 Rx mg tablet exemestane 25 mg tablet 25 mg PO QAM 10/20/21 10/20/21 10/20/21 History pantoprazole 40 mg tablet,delayed 40 mg PO BEDTIME 10/20/21 10/20/21 10/19/21 History release rosuvastatin 10 mg tablet 10 mg PO BEDTIME 10/20/21 10/20/21 10/19/21 History Allergies Allergy/AdvReac Type Severity Reaction Status Date / Time codeine Allergy ADR-Vomitin Verified 10/20/21 14:46 g influenza virus vaccine Allergy ALGY-Anaphy Verified 10/20/21 14:46 tval,purif- laxis morphine Allergy ADR-Vomitin Verified 10/20/21 14:46 g NSAIDS (Non-Steroidal Allergy ALGY-Hives Verified 10/20/21 14:46 Anti-Inflamma Penicillins Allergy ALGY-Hives Verified 10/20/21 14:46 Sulfa (Sulfonamide Allergy ALGY-Hives Verified 10/20/21 14:46 Antibiotics) PFSH Acute PFSH: Medical History (Updated 10/20/21 @ 16:34 by Richie Chang MD) Abdominal carcinomatosis Anxiety Ascites Cancer of trigone of urinary bladder Depression Fibromyalgia History of urinary retention Hyponatremia Malignant Tone tumor of left ovary Ovarian cancer Polyuria Urgency incontinence Surgical History H/O esophagogastroduodenoscopy (06/17/21) History of carpal tunnel repair History of colonoscopy 2020 History of colostomy reversal History of transurethral destruction of bladder lesion Status post appendectomy Status post bilateral oophorectomy Status post colostomy Status post laparoscopic cholecystectomy (06/17/21) Social History Alcohol intake: never Adopted: No Caregiver/support person: No Lives independently: No Household members: spouse Marital status: Current occupational status: retired History of recent travel: No Current gender identity: Female Vitals/I&O/Wt Last Vital Signs Temp 97.7 F 10/20/21 14:19 Pulse 88 10/20/21 17:14 Resp 20 H 10/20/21 17:14 BP 125/78 10/20/21 17:14 Pulse Ox 98 10/20/21 17:14 Weight last 48 hrs Weight 140 lb Physical Exam Narrative: The patient was encountered in her room in the emergency department. She has a nasogastric tube in place but there is minimal fluid in the canister. She is in no acute distress but acts like she just does not feel well. The pupils seem equal. No carotid bruits are heard. The lungs are clear anteriorly. The heart seems regular. The abdomen is moderately distended and somewhat firm with mild scattered tenderness. The extremities reveal no sign ificant edema. The patient can move all limbs to command. Data : 10/20/21 14:34 10/20/21 15:51 Micro: Microbiology 10/20/21 17:06 Blood Culture - Preliminary Blood SPECIMEN COLLECTED 10/20/21 17:04 Blood Culture - Preliminary Blood SPECIMEN COLLECTED CT Abd/Pel: Radiologist's impression: CT abdomen/pelvis 10/20/2021 IMPRESSION: ? 1.? Small pleural effusion with compressive atelectasis LEFT lower lobe is new from previous. 2.? Moderate abdominal ascites slightly progressed compared to previous. 3.? Dilated fluid-filled loops of small bowel with air-fluid levels and mucosal enhancement in the midabdomen. Findings compatible with small bowel obstruction. Distal ileum is decompressed. Small bowel obstruction may be due to adhesions or tethering considering peritoneal carcinomatosis 4.? Mild colonic constipation. 5.? No free air. 6.? Stable findings of peritoneal carcinomatosis partially obscured by the ascites. A&P Assessment and plan (1) Small bowel obstruction: I agree with the assessment of a small bowel obstruction, at least partial in severity. The colon still has stool and air throughout. The patient thinks she still passing flatus and had a normal bowel movement this morning. Status: Acute (2) Abdominal carcinomatosis: The patient has significant ascites secondary to her carcinomatosis. Unfortunately, small bowel obstructionis the way that many carcinomatosis patie nts succumb. I think there is going to be little that I can assist with surgically. Hopefully she will improve with conservative measures and we can get her more comfortable. I will continue the follow with you for now. Status: Acute Consult Attestations Medical Necessity Statement: See admitting service's notation. 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
[2021-10-20] MEDS: pantoprazole 40 mg SDV IVP (17:42)
[2021-10-20 17:46] LABS: Add Urine Microscopic? NO; Charge for UA Resulting for Rev
[2021-10-20] MEDS: morphine 4 mg/mL SDV 1 mL 1 MG IVP (17:47)
[2021-10-20] MEDS: sodium chloride 0.9% 1,000 ML 50 ML IV ×2 (17:49→23:11)
[2021-10-20 17:52] LABS: Bilirubin Urine Neg (Negative); Blood Urine Neg (Negative); Glucose Urine UA Norm (Normal); Ketones Urine 1+ (Negative); Leukocyte Esterase Urine Negative (Negative); Nitrate Urine Negative (Negative); Protein Urine Neg (Negative); Specific Gravity, Urine 1.015 (1.005-1.030); Urine Appearance Clear (CLEAR); Urine Color Yellow (Yellow); Urobilinogen Urine Norm (Negative); pH Urine 5 (5-7)
[2021-10-20 18:13] LABS: Potassium, Radom Urine 15 mmol/L
[2021-10-20 18:32] LABS: Urine Random Chloride < 10 mmol/L; Urine Random Sodium < 10 mmol/L
[2021-10-20] MEDS: lidocaine 1% 5 ML in potassium chloride premix 100 ML 25 ML IV ×2 (18:32→22:04)
[2021-10-20] MEDS: heparin 5,000 unit/mL INJ 1 mL 5000 UNIT SUBCUT (22:03)
[2021-10-20] MEDS: TRAMadol 50 mg Tablet 25 MG PO (23:36)
[2021-10-21] VITALS (8 sets, daily range): BP systolic 130–165; BP diastolic 70–90; PULSE 104–113; RESP 18–20; TEMP 36.7–36.8; O2SAT 90–94
--- NOTE | 2021-10-21 00:16 | PC.NURSE ---
[place] HAD COMPLAITNS OF HEADACHE NOTED. HOSPITALIST NOTIFIED AND NEW ORDER RECEIVED. REFER TO ORDER TAB.
[2021-10-21 05:00] LABS: Basophils # 0.1 10^3/uL (0.0-0.1); Basophils % 1.6 %; Eosinophils # 0.2 10^3/uL (0.0-0.8); Eosinophils % 4.1 %; Hematocrit 36.4 % (37.0-47.0); Hemoglobin 11.6 g/dL (11.5-15.3); Lymphocytes # 0.5 10^3/uL (0.8-4.8); Lymphocytes % 12.4 %; Mean Corpuscular HGB Conc 31.9 g/dL (30.0-36.0); Mean Corpuscular Volume 87.9 fl (81-99); Mean Platelet Volume 8.9 fL (7.4-10.4); Monocytes # 0.9 10^3/uL (0.2-0.9); Neutrophils # 2.67 10^3/uL (1.8-7.7); Neutrophils % 61.7 %; Nucleated Red Blood Cells % 0 %; Platelet Count 467 10^3/cmm (130-400); Red Blood Count 4.14 10^6/uL (4.1-5.3); Red Cell Distribution Width 15.3 % (12.1-15.1); White Blood Count 4.3 10^3/uL (4.0-10.0)
[2021-10-21 05:14] LABS: Estmated Average Glucose 100; Hemoglobin A1C 5.1 % (4.0-6.0)
[2021-10-21 05:22] LABS: Alanine Aminotransferase 8 U/L (0-33); Albumin Level 3.3 g/dL (3.5-5.2); Alkaline Phosphatase 61 IU/L (35-105); Anion Gap 16.8 (5-19); Aspartate Amino Transferase 12 U/L (0-32); Blood Urea Nitrogen 9 mg/dL (8-23); Calcium 8.6 mg/dL (8.5-10.5); Carbon Dioxide 20 mmol/L (22-29); Chloride 102 mmol/L (98-107); Chol HDL Ratio 2.84 mg/dL (0.0-4.40); Cholesterol 91 mg/dL (0-200); Globulin 2.5 g/dL (1.3-4.6); Glomerular Filtration Rate 100.6 mL/min (90-130); Glucose 105 mg/dL (65-115); HDL Cholesterol 32 mg/dL (60-100); LDL Cholesterol Calculated 38 mg/dL (50-129); Magnesium 1.9 mg/dL (1.7-2.3); Osmolality Calculated 277 mOsm/kg (285-295); Phosphorus 3.4 mg/dL (2.5-4.5); Potassium 4.8 mmol/L (3.5-5.1); Sodium 134 mmol/L (136-145); Total Bilirubin 0.3 mg/dL (0.15-1.2); Total Protein 5.8 g/dL (6.6-8.7); Triglycerides 107 mg/dL (0-150); VLDL Cholestrol Calculation 21 mg/dL (0-30)
--- NOTE | 2021-10-21 06:30 | P.PN_ITS ---
Subjective Subjective: The patient is already feeling a little bit better this morning. She thinks she is still passing some small amounts of flatus. Vitals/I&O/Wt Last Vital Signs Temp 98.1 F 10/21/21 03:41 Pulse 110 H 10/21/21 04:53 Resp 20 H 10/21/21 03:41 BP 130/90 10/21/21 03:41 Pulse Ox 90 10/21/21 03:41 10/20/21 10/20/21 10/21/21 14:59 22:59 06:59 Intake Total 188.333 / 761.666 573.333 / 761.666 Output Total 450 / 900 450 / 900 Balance -261.667 / -138.334 123.333 / -138.334 Weight last 48 hrs Weight 154 lb 11.2 oz Weight 152 lb 12.8 oz Weight 140 lb Physical Exam Narrative: Upon looking at the nasogastric tube, it appeared the suction canister was not hooked after the suction correctly. After being hooked up correctly, however, there was a minimal fluid return on suction. The patient's abdomen is still little firm but I think a lot of this is from the ascites that is present. She certainly does not seem to be as uncomfortable as she was yesterday with palpation. Data : 10/21/21 04:32 10/21/21 04:32 Micro: Microbiology 10/20/21 17:06 Blood Culture - Preliminary Blood SPECIMEN COLLECTED 10/20/21 17:04 Blood Culture - Preliminary Blood SPECIMEN COLLECTED A&P Assessment and plan (1) Small bowel obstruction: I agree with the assessment of a small bowel obstruction on the presentation CAT scan at least partial in severity. The colon still had stool and air throughout. The patient thinks she still passing flatus and had a normal bowel movement the morning of presentation. Status: Acute (2) Abdominal carcinomatosis: The patient has significant ascites secondary to her carcinomatosis. Unfortunately, small bowel obstruction is the way that many carcinomatosis patients succumb. I think there is going to be little that I can assist with surgically. Fortunately, it appears that she may be improved. Since her nasogastric tube did not appear do be hooked up the suction correctly, I am going to leave it hooked up the low intermittent suction this morning. I will continue the follow with you for now. [facility]*: See admitting service's notation. 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
[2021-10-21] MEDS: morphine 4 mg/mL SDV 1 mL 1 MG IVP ×2 (10:28→20:20)
[2021-10-21] MEDS: ondansetron 2 mg/ML SDV 2 mL 4 MG IVP ×2 (10:35→20:19)
[2021-10-21 10:56] LABS: Body Fluid Polynuclear #Cells 0.022; Body Fluid WBC 248 /uL; Monocytes # Body Fluid 0.226
[2021-10-21 10:57] LABS: Apprearance, Body Fluid CLOUDY; Color, Body Fluid PALE YELLOW
[2021-10-21 11:10] LABS: Albumin Body Fluid 2.5 g/dL; Amylase Body Fluid 512 U/L; Fluid Alkaline Phos. 35 IU/L; LDH Body Fluid 176 U/L; Total Protein Body Fluid 4.2 g/dL
[2021-10-21] MEDS: metoprolol tartrate 1 mg/1 mL SDV 5 mL 2.5 MG IVP ×3 (11:55→22:10)
--- NOTE | 2021-10-21 12:21 | P.PN_ITS ---
Subjective Subjective: No acute events overnight. Patient seen at bedside today with spouse. Patient in good spirits. Denies any nausea vomiting, headache. NG tube in place. States he is passing flatus and had a small bowel movement earlier in the day today. NG tube placed on intermittent suction by surgery today. Underwent paracentesis today. 3.5 L of fluid aspirated. Tolerated procedure well. Hemodynamically stable. Vitals/I&O/Wt Last Vital Signs Temp 98.1 F 10/21/21 03:41 Pulse 104 H 10/21/21 11:31 Resp 18 10/21/21 11:31 BP 150/74 10/21/21 11:31 Pulse Ox 92 10/21/21 11:31 10/20/21 10/21/21 10/21/21 22:59 06:59 14:59 Intake Total 188.333 / 188.333 573.333 / 761.666 100 / 100 Output Total 450 / 450 450 / 900 Balance -261.667 / -261.667 123.333 / -138.334 100 / 100 Weight last 48 hrs Weight 70.171 kg Weight 69.309 kg Weight 63.503 kg Physical Exam Narrative: General: No acute distress, AO x3, pleasant HEENT: PERRLA, pupils bilaterally equal and reactive Chest: Normal vesicular breath sounds, no added sounds, equal good air entry bilaterally CVS: S1-S2 regular, no murmurs, no tachycardia, no gallops, no rubs Abdomen: Soft, distended, tender generalized no organomegaly, bowel sounds sluggish, post laparoscopic scars present. Neuro: No focal deficits, no facial deformity, AO x3, power 5/5 in all limbs Data : 10/21/21 04:32 10/21/21 04:32 Micro: Microbiology 10/20/21 17:06 Blood Culture - Preliminary Blood SPECIMEN COLLECTED 10/20/21 17:04 Blood Culture - Preliminary Blood SPECIMEN COLLECTED A&P Assessment and plan (1) Small bowel obstruction: Status: Acute (2) Ascites: Status: Acute (3) Hyponatremia: Status: Acute (4) Abdominal carcinomatosis: Status: Acute (5) Malignant Tone tumor of left ovary: Status: Acute Plan Small bowel obstruction: Conservative treatment. NPO. Bowel rest. NG tube to intermittent suction. Advance diet as per surgical team. Surgical recommendations appreciated. Protonix, Zofran as needed. Ascites: Small bowel obstruction could be secondary to SBP though unlikely. 3.5 L of paracentric fluid aspirate today. Fluid studies consistent with WBC of 248 with a glucose of 91. LDH within normal limits. Rules out SBP. Stop imipenem and monitor. Hyponatremia: Chronic. Resolving. Urine lites appreciated. Continue with normal saline at 50 cc/h for now. We will try to change oral to IV medication as best possible. IV metoprolol 2.5 mg every 4 hour. Full code. NPO. Heparin 5000 every 12 hourly. 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
--- NOTE | 2021-10-21 13:00 | US_ITS ---
NOTE: Report was unsigned for reason: Order was edited. Original Signature date and time was: 10/21/2021 1218 WS: [id number] ULTRASOUND-GUIDED THERAPEUTIC AND DIAGNOSTIC PARACENTESIS Procedure, risks, and complications have been explained to the patient. Consent is obtained. Utilizing aseptic technique and 1% buffered lidocaine, a small dermatome was made through which a 5 [place] Yueh catheter was inserted. Approximately 3500 ml of clear yellow peritoneal fluid was obtained without difficulty. No complications encountered. Fluid collected for analysis. [facility] paracent[facility] abd w [id number] IMPRESSION: Uncomplicated paracentesis yielding 3500 ml of peritoneal fluid. Peritoneal fluid collected for analysis as requested.
[2021-10-21] MEDS: pantoprazole 40 mg SDV IVP (18:22)
[2021-10-21] MEDS: sodium chloride 0.9% 1,000 ML 50 ML IV (19:32)
[2021-10-21] MEDS: heparin 5,000 unit/mL INJ 1 mL 5000 UNIT SUBCUT (21:51)
[2021-10-22] VITALS (8 sets, daily range): BP systolic 130–154; BP diastolic 66–90; PULSE 82–96; RESP 17–20; TEMP 36.7–37.3; O2SAT 90–94
[2021-10-22] MEDS: metoprolol tartrate 1 mg/1 mL SDV 5 mL 2.5 MG IVP ×3 (02:20→10:40)
[2021-10-22] MEDS: ondansetron 2 mg/ML SDV 2 mL 4 MG IVP ×3 (02:23→17:31)
[2021-10-22] MEDS: morphine 4 mg/mL SDV 1 mL 1 MG IVP ×2 (02:24→10:32)
[2021-10-22 05:34] LABS: Alanine Aminotransferase 6 U/L (0-33); Alkaline Phosphatase 58 IU/L (35-105); Anion Gap 19.1 (5-19); Aspartate Amino Transferase 12 U/L (0-32); Blood Urea Nitrogen 8 mg/dL (8-23); Calcium 8.6 mg/dL (8.5-10.5); Carbon Dioxide 20 mmol/L (22-29); Chloride 99 mmol/L (98-107); Globulin 2.8 g/dL (1.3-4.6); Glomerular Filtration Rate 124.2 mL/min (90-130); Glucose 87 mg/dL (65-115); Osmolality Calculated 276 mOsm/kg (285-295); Potassium 4.1 mmol/L (3.5-5.1); Sodium 134 mmol/L (136-145); Total Bilirubin 0.2 mg/dL (0.15-1.2); Total Protein 5.8 g/dL (6.6-8.7)
--- NOTE | 2021-10-22 08:36 | PM.PN ---
Subjective Subjective: The patient says she feels very well. She is passing flatus and actually had a bowel movement yesterday. Her NG tube was clamped last night and she said she never had the habit connected that the suction. Vitals/I&O/Wt Last Vital Signs Temp 98.2 F 10/22/21 03:46 Pulse 87 10/22/21 03:46 Resp 17 10/22/21 03:46 BP 144/66 10/22/21 03:46 Pulse Ox 93 10/22/21 03:46 10/21/21 10/22/21 10/22/21 22:59 06:59 14:59 Intake Total 1000 / 1100 0 / 1100 Output Total 300 / 1000 700 / 1000 Balance 700 / 100 -700 / 100 Weight last 48 hrs Weight 149 lb 6.4 oz Weight 154 lb 11.2 oz Weight 152 lb 12.8 oz Weight 140 lb Physical Exam Narrative: The abdomen remains mildly tender with scattered tenderness. The nasogastric tube was hooked back up to suction and revealed minimal fluid. Data : 10/21/21 04:32 10/22/21 04:10 Micro: Microbiology 10/20/21 17:06 Blood Culture - Preliminary Blood NEGATIVE TO DATE 10/20/21 17:04 Blood Culture - Preliminary Blood NEGATIVE TO DATE 10/20/21 17:24 MRSA Culture - Final Nose 10/21/21 10:15 Gram Stain - Final Peritoneal Fluid A&P Assessment and plan (1) Small bowel obstruction: I agree with the original assessment of a small bowel obstruction on the presentation CAT scan, at least partial in severity. The colon still had stool and air throughout. Status: Acute (2) Abdominal carcinomatosis: The patient has significant ascites secondary to her carcinomatosis. Unfortunately, small bowel obstruction is the way that many carcinomatosis patients succumb. I think there is going to be little that I can assist with surgically. Fortunately, it appears that she has improved. Remove nasogastric tube. Clear liquid diet. Status: Acute Attestations Medical Necessity Statement*: See admitting service's notation. 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
[2021-10-22] MEDS: heparin 5,000 unit/mL INJ 1 mL 5000 UNIT SUBCUT ×2 (10:32→22:09)
--- NOTE | 2021-10-22 12:15 | PM.PN ---
Subjective Subjective: No acute events overnight. Patient continues to pass flatus. States she is feeling a lot better. NG tube removed as per surgical directions today morning. Patient has tolerated clear liquid diet well. She is anxious and eagerly awaiting to try and advance her diet further. She wants to try full liquid diet for now and see how she feels. Asking for home medications. Vitals/I&O/Wt Last Vital Signs Temp 98.1 F 10/22/21 12:00 Pulse 84 10/22/21 12:00 Resp 17 10/22/21 12:00 BP 154/70 10/22/21 12:00 Pulse Ox 90 10/22/21 12:00 10/21/21 10/22/21 10/22/21 22:59 06:59 14:59 Intake Total 1000 / 1100 0 / 1100 1600 / 1600 Output Total 300 / 300 700 / 1000 Balance 700 / 800 -700 / 100 1600 / 1600 Weight last 48 hrs Weight 67.767 kg Weight 70.171 kg Weight 69.309 kg Weight 63.503 kg Physical Exam Narrative: General: No acute distress, AO x3, pleasant HEENT: PERRLA, pupils bilaterally equal and reactive Chest: Normal vesicular breath sounds, no added sounds, equal good air entry bilaterally CVS: S1-S2 regular, no murmurs, no tachycardia, no gallops, no rubs Abdomen: Soft, distended, tender generalized no organomegaly, bowel sounds sluggish, post laparoscopic scars present. Neuro: No focal deficits, no facial deformity, AO x3, power 5/5 in all limbs Data : 10/21/21 04:32 10/22/21 04:10 Micro: Microbiology 10/21/21 10:15 Gram Stain - Final Peritoneal Fluid Body Fluid Culture - Preliminary 10/20/21 17:06 Blood Culture - Preliminary Blood NEGATIVE TO DATE 10/20/21 17:04 Blood Culture - Preliminary Blood NEGATIVE TO DATE 10/20/21 17:24 MRSA Culture - Final Nose A&P Assessment and plan (1) Small bowel obstruction: Status: Acute (2) Ascites: Status: Acute (3) Hyponatremia: Status: Acute (4) Abdominal carcinomatosis: Status: Acute (5) Malignant Tone tumor of left ovary: Status: Acute Plan Small bowel obstruction: Conservative treatment. Advance to full liquid diet. NG tube removed. Monitor for nausea and vomiting. Start on oral medications as per home. Surgical recommendations appreciated. Protonix, Zofran as needed. Ascites: Small bowel obstruction could be secondary to SBP though unlikely. 3.5 L of paracentric fluid aspirate today. Fluid studies consistent with WBC of 248 with a glucose of 91. LDH within normal limits. Rules out SBP. Stop imipenem. Patient has has been hemodynamically stable and afebrile. Hyponatremia: Chronic. Resolving. Urine lites appreciated. Stop IV fluids. Restart home medication of gabapentin, duloxetine. Hypertension: Goal blood pressure less than 140/90 [place]. Restart home dose of lisinopril and metoprolol. Stop IV metoprolol. Full code. Full liquid diet. Heparin 5000 every 12 hourly. Protonix Attestations Medical Necessity Statement*: Requires further hospitalization for further evaluation management of small bowel obstruction as diet is advanced. 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
[2021-10-22] MEDS: lisinopril 5 mg Tablet PO (15:05)
[2021-10-22] MEDS: GABAPENTIN 300MG 600 MG PO (15:05)
[2021-10-22] MEDS: metoprolol succinate ER (24 HR) 25 mg Tablet PO (15:05)
[2021-10-22] MEDS: pantoprazole 40 mg SDV IVP (17:23)
[2021-10-22] MEDS: duloxetine 30 mg Capsule PO (20:57)
[2021-10-22] MEDS: duloxetine 60 mg Capsule PO (20:57)
[2021-10-22] MEDS: atorvastatin 40 mg Tablet PO (20:57)
[2021-10-23] VITALS: BP 118/73; PULSE 81; RESP 16; TEMP 36.5; O2SAT 92
[2021-10-23 05:26] LABS: Basophils % 0.5 %; Eosinophils # 0.3 10^3/uL (0.0-0.8); Eosinophils % 6.6 %; Hematocrit 36.4 % (37.0-47.0); Hemoglobin 11.9 g/dL (11.5-15.3); Lymphocytes # 0.8 10^3/uL (0.8-4.8); Lymphocytes % 19.6 %; Mean Corpuscular HGB Conc 32.7 g/dL (30.0-36.0); Mean Corpuscular Hemoglobin 28.3 pg (28.0-34.0); Mean Corpuscular Volume 86.5 fl (81-99); Mean Platelet Volume 9.2 fL (7.4-10.4); Monocytes % 25.3 %; Neutrophils # 1.87 10^3/uL (1.8-7.7); Neutrophils % 47.7 %; Nucleated Red Blood Cells % 0 %; Platelet Count 406 10^3/cmm (130-400); Red Blood Count 4.21 10^6/uL (4.1-5.3); Red Cell Distribution Width 15.2 % (12.1-15.1); White Blood Count 3.9 10^3/uL (4.0-10.0)
[2021-10-23 05:47] LABS: Alanine Aminotransferase 6 U/L (0-33); Alkaline Phosphatase 60 IU/L (35-105); Anion Gap 15.8 (5-19); Aspartate Amino Transferase 15 U/L (0-32); Blood Urea Nitrogen 8 mg/dL (8-23); Calcium 8.6 mg/dL (8.5-10.5); Carbon Dioxide 24 mmol/L (22-29); Chloride 93 mmol/L (98-107); Glomerular Filtration Rate 124.2 mL/min (90-130); Glucose 108 mg/dL (65-115); Osmolality Calculated 267 mOsm/kg (285-295); Potassium 3.8 mmol/L (3.5-5.1); Sodium 129 mmol/L (136-145); Total Bilirubin 0.3 mg/dL (0.15-1.2)
[2021-10-23 07:51] VITALS: BP 115/66; PULSE 87; TEMP 37; O2SAT 89
--- NOTE | 2021-10-23 08:51 | P.PN_ITS ---
Subjective Subjective: I feel great. The patient continues to pass flatus. She is tolerating an oral diet (full liquids; she would like some soft food). She plans on going home today. Vitals/I&O/Wt Last Vital Signs Temp 98.6 F 10/23/21 07:51 Pulse 87 10/23/21 07:51 Resp 16 10/23/21 00:00 BP 115/66 10/23/21 07:51 Pulse Ox 89 L 10/23/21 07:51 10/22/21 10/23/21 10/23/21 22:59 06:59 14:59 Output Total 300 / 300 Balance -300 / 1540 Weight last 48 hrs Weight 149 lb 6.4 oz Physical Exam Narrative: Bowel sounds are present. Abdomen reveals minimal tenderness. Data : 10/23/21 04:21 10/23/21 04:21 Micro: Microbiology 10/21/21 10:15 Gram Stain - Final Peritoneal Fluid Anaerobic Culture - Preliminary Body Fluid Culture - Preliminary A&P Assessment and plan (1) Small bowel obstruction: I agree with the original assessment of a small bowel obstruction on the presentation CAT scan, at least partial in severity. The colon still had stool and air throughout. The patient is now much improved. I will allow her a GI soft diet. Anticipate discharge by the hospitalist service later today. Status: Acute (2) Abdominal carcinomatosis: Status: Acute Attestations Medical Necessity Statement*: See admitting service's notation. 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
--- NOTE | 2021-10-23 09:13 | PC.SOCIAL ---
IMM Update Pg. 2 of IMM updated and reviewed with patient who verbalized understanding. Copy provided.
--- NOTE | 2021-10-23 10:52 | PM.DCS ---
Discharge Providers Date of Admission: 10/20/21 16:19 Date of Discharge: October 23, 2021 Attending Provider at Admission: Richie Chang MD Attending Provider at Discharge: Richie Chang MD Consults: Surgery: Dr. Hennessy Primary Care Provider: JARED Rodriguez Diagnoses at Discharge Discharge Diagnosis (1) Small bowel obstruction: Status: Acute (2) Abdominal carcinomatosis: Status: Acute Reason for Visit Reason for Visit: upper abd pain Hospital Course Hospital Course Tonya Pacheco is a 66 year old very pleasant female with past medical history of depression, degenerative disease of spine, fibromyalgia, bladder cancer, grade 3 adenocarcinoma of left ovary, stage IIb, recent diagnosis of peritoneal carcinomatosis with recent paracentesis when around 3 L of fluid was taken off presented to the ER today with complaint of abdominal bloating and discomfort along with nausea for last 1 day.? Patient states after paracentesis she felt better for last next 4 days but then started having abdominal fullness again worsening daily.? Last bowel movement was today.? Normal.? Denies any melena, vomiting. She will be the hospital further evaluation and management of small bowel obstruction. She was treated conservatively with NG tube placement. SBP was ruled out with negative diagnostic and therapeutic paracentesis. 3.5 L of serosanguineous fluid was drained. Gradually her diet was advanced and currently she has been doing well on mechanical soft diet. She has been discharged hemodynamically stable condition with advised to take multiple small meals daily and advance gradually to her regular diet. She is advised to follow-up with Dr. Benitez from oncology and set appointment in October 30 week. It is highly likely that patient would need a permanent abdominal drain if she continues to have frequent development of ascites. Patient verbalizes understanding. Physical Exam Narrative: General: No acute distress, AO x3, pleasant HEENT: PERRLA, pupils bilaterally equal and reactive Chest: Normal vesicular breath sounds, no added sounds, equal good air entry bilaterally CVS: S1-S2 regular, no murmurs, no tachycardia, no gallops, no rubs Abdomen: Soft, distended, tender generalized no organomegaly, bowel sounds sluggish, post laparoscopic scars present. Neuro: No focal deficits, no facial deformity, AO x3, power 5/5 in all limbs Discharge Data Studies Completed and Pending Completed Studies During Hospitalization Category Date Time Status CT abdomen pelvis w con* [id number] Stat Cat Scan 10/20/21 14:53 Completed XR chest 1V portable [id number] Stat Exams 10/20/21 Com[place]acent[place] abd w [id number] Urgent Ultrasound 10/21/21 13:00 Completed Pending at discharge Category Date Time Status Anaerobic Culture Routine Lab 10/20/21 16:27 Results Blood Culture Stat Lab 10/20/21 17:06 Results Body Fluid Culture & GS Routine Lab 10/20/21 16:27 Results Radiology Impressions Chest X-Ray 10/20/21 00:00 IMPRESSION: 1. No acute finding in the chest. 2. Gastric tube tip in the proximal stomach. Abdomen/Pelvis CT 10/20/21 14:53 IMPRESSION: 1. Small pleural effusion with compressive atelectasis LEFT lower lobe is new from previous. 2. Moderate abdominal ascites slightly progressed compared to previous. 3. Dilated fluid-filled loops of small bowel with air-fluid levels and mucosal enhancement in the midabdomen. Findings compatible with small bowel obstruction. Distal ileum is decompressed. Small bowel obstruction may be due to adhesions or tethering considering peritoneal carcinomatosis 4. Mild colonic constipation. 5. No free air. 6. Stable findings of peritoneal carcinomatosis partially obscured by the ascites. Notified Joe Washington DO at 10/20/2021 3:57 PM. Paracentesis Ultrasound 10/21/21 13:00 IMPRESSION: Uncomplicated paracentesis yielding 3500 ml of peritoneal fluid. Peritoneal fluid collected for analysis as requested. Microbiology 10/21/21 10:15 Peritoneal Fluid Gram Stain - Final 10/21/21 10:15 Peritoneal Fluid Anaerobic Culture - Preliminary 10/21/21 10:15 Peritoneal Fluid Body Fluid Culture - Preliminary 10/20/21 17:06 Blood Blood Culture - Preliminary NEGATIVE TO DATE 10/20/21 17:04 Blood Blood Culture - Preliminary NEGATIVE TO DATE 10/20/21 17:24 Nose MRSA Culture - Final Laboratory Results WBC 3.9 10^3/uL (4.0-10.0) L 10/23/21 04:21 RBC 4.21 10^6/uL (4.1-5.3) 10/23/21 04:21 Hgb 11.9 g/dL (11.5-15.3) 10/23/21 04:21 Hct 36.4 % (37.0-47.0) L 10/23/21 04:21 MCV 86.5 fl (81-99) 10/23/21 04:21 MCH 28.3 pg (28.0-34.0) 10/23/21 04:21 MCHC 32.7 g/dL (30.0-36.0) 10/23/21 04:21 RDW 15.2 % (12.1-15.1) H 10/23/21 04:21 Plt Count 406 10^3/cmm (130-400) H 10/23/21 04:21 MPV 9.2 fL (7.4-10.4) 10/23/21 04:21 Neut % (Auto) 47.7 % 10/23/21 04:21 Lymph % (Auto) 19.6 % 10/23/21 04:21 [place] % (Auto) 25.3 % 10/23/21 04:21 Eos % (Auto) 6.6 % 10/23/21 04:21 Baso % (Auto) 0.5 % 10/23/21 04:21 Neut # (Auto) 1.87 10^3/uL (1.8-7.7) 10/23/21 04:21 Lymph # (Auto) 0.8 10^3/uL (0.8-4.8) 10/23/21 04:21 [place] # (Auto) 1.0 10^3/uL (0.2-0.9) H 10/23/21 04:21 Eos # (Auto) 0.3 10^3/uL (0.0-0.8) 10/23/21 04:21 Baso # (Auto) 0.0 10^3/uL (0.0-0.1) 10/23/21 04:21 Nucleated RBC % (auto) 0 % 10/23/21 04:21 Nucleated RBCs # 0.0 /100WBC 10/23/21 04:21 PT 15.20 SECONDS (12.1-14.9) H 10/20/21 15:57 INR 1.16 (0.8-1.2) 10/20/21 15:57 Sodium 129 mmol/L (136-145) L 10/23/21 04:21 Potassium 3.8 mmol/L (3.5-5.1) 10/23/21 04:21 Chloride 93 mmol/L (98-107) L 10/23/21 04:21 Carbon Dioxide 24 mmol/L (22-29) 10/23/21 04:21 Anion Gap 15.8 (5-19) 10/23/21 04:21 BUN 8 mg/dL (8-23) 10/23/21 04:21 Creatinine 0.5 mg/dL (0.5-0.9) 10/23/21 04:21 GFR Calculation 124.2 mL/min (90-130) 10/23/21 04:21 Glucose 108 mg/dL (65-115) 10/23/21 04:21 Estimat Average Glucose 100 10/21/21 04:32 Hemoglobin A1c 5.1 % (4.0-6.0) 10/21/21 04:32 Calculated Osmolality 267 mOsm/kg (285-295) L 10/23/21 04:21 Calcium 8.6 mg/dL (8.5-10.5) 10/23/21 04:21 Phosphorus 3.4 mg/dL (2.5-4.5) 10/21/21 04:32 Magnesium 1.9 mg/dL (1.7-2.3) 10/21/21 04:32 Iron 22 ug/dL (37-145) L 10/20/21 15:57 TIBC 137 mcg/dl 10/20/21 15:57 % Saturation 16.0 % (20-50) L 10/20/21 15:57 Unsat Iron Binding 115 ug/dL (112-347) 10/20/21 15:57 Total Bilirubin 0.3 mg/dL (0.15-1.2) 10/23/21 04:21 AST 15 U/L (0-32) 10/23/21 04:21 ALT 6 U/L (0-33) 10/23/21 04:21 Alkaline Phosphatase 60 IU/L (35-105) 10/23/21 04:21 Total Protein 6.0 g/dL (6.6-8.7) L 10/23/21 04:21 Albumin 3.0 g/dL (3.5-5.2) L 10/23/21 04:21 Globulin 3.0 g/dL (1.3-4.6) 10/23/21 04:21 Triglycerides 107 mg/dL (0-150) 10/21/21 04:32 Cholesterol 91 mg/dL (0-200) 10/21/21 04:32 LDL Cholesterol, Calc 38 mg/dL (50-129) L 10/21/21 04:32 Total VLDL Cholesterol 21 mg/dL (0-30) 10/21/21 04:32 HDL Cholesterol 32 mg/dL (60-100) L 10/21/21 04:32 Cholesterol/HDL Ratio 2.84 mg/dL (0.0-4.40) 10/21/21 04:32 Lipase 9 U/L (13-60) L 10/20/21 15:51 Urine Color Yellow (Yellow) 10/20/21 16:40 Urine Appearance Clear (CLEAR) 10/20/21 16:40 Urine pH 5 (5-7) 10/20/21 16:40 Ur Specific [place] 1.015 (1.005-1.030) 10/20/21 16:40 Urine Protein Neg (Negative) 10/20/21 16:40 Urine Glucose (UA) Norm (Normal) 10/20/21 16:40 Urine Ketones 1+ (Negative) H 10/20/21 16:40 Urine Blood Neg (Negative) 10/20/21 16:40 Urine Nitrate Negative (Negative) 10/20/21 16:40 Urine Bilirubin Neg (Negative) 10/20/21 16:40 Urine Urobilinogen Norm mg/dL (Negative) 10/20/21 16:40 Ur Leukocyte Esterase Negative (Negative) 10/20/21 16:40 Ur Random Sodium < 10 mmol/L 10/20/21 16:40 Ur Random Potassium 15 mmol/L 10/20/21 16:40 Ur Random Chloride < 10 mmol/L 10/20/21 16:40 Fluid Color Pale yellow 10/21/21 10:15 Fluid Appearance Cloudy 10/21/21 10:15 Fluid pH 8.0 10/21/21 10:15 Fluid WBC 248 /uL 10/21/21 10:15 Fluid RBC 1.000 10^3/uL 10/21/21 10:15 Fld Polynuclear WBCs # 0.022 10/21/21 10:15 Fld Polynuclear WBCs % 8.800 % 10/21/21 10:15 Fl Mononucl WBCs #(Auto) 0.226 10/21/21 10:15 Fl Mononuclear % Auto 91.200 % 10/21/21 10:15 Fluid Glucose 91.0 mg/dL 10/21/21 10:15 Fluid Total Protein 4.2 g/dL 10/21/21 10:15 Fluid Albumin 2.5 g/dL 10/21/21 10:15 Fluid LDH 176 U/L 10/21/21 10:15 Fluid Amylase 512 U/L 10/21/21 10:15 Fluid Alk Phosphatase 35 IU/L 10/21/21 10:15 Vitals Last Vital Signs Temp 98.6 F 10/23/21 07:51 Pulse 87 10/23/21 07:51 Resp 16 10/23/21 00:00 BP 115/66 10/23/21 07:51 Pulse Ox 89 L 10/23/21 07:51 Discharge Plan Discharge Patient Disposition: Home Condition: Stable Prescriptions: Continued gabapentin 600 mg tablet 600 mg PO BEDTIME 0RF duloxetine [Cymbalta] 60 mg capsule,delayed release(DR/EC) 90 mg PO BEDTIME 0RF Label Comments: With 30mg for PRN cetirizine-pseudoephedrine [Zyrtec-D] 5-120 mg tablet extended release 12 hr 1 tab PO BID PRN (Reason: Allergy Symptoms) 0RF metoprolol succinate 25 mg tablet extended release 24 hr 25 mg PO BEDTIME 0RF montelukast 10 mg tablet 10 mg PO BEDTIME 0RF lisinopril 5 mg tablet 5 mg PO BEDTIME 0RF hydrocodone-acetaminophen 5-325 mg tablet 1 tab PO Q6H PRN (Reason: pain) Qty: 20 0RF exemestane 25 mg tablet 25 mg PO QAM 0RF pantoprazole 40 mg tablet,delayed release (DR/EC) 40 mg PO BEDTIME 0RF rosuvastatin 10 mg tablet 10 mg PO BEDTIME 0RF Discharge Orders: Discharge Order (Routine); Ordered 10/23/21 Ordered By: Richie Chang Referrals: Klaudia Cedeno FNP [Primary Care Provider] - 1 week Discharge Diet: Regular Discharge Activity: Resume usual activity and Increase activity as tolerated Patient Instructions: Opioid Safety Activity Restrictions/Additional Instructions: Please follow-up with Dr. Benitez onset appointment in October 30 week. Please follow-up with your primary care provider within the next 1 week. Please come to the ER if you start having abdominal fullness or tenderness again. Please continue to take multiple small meals. Please advance gradually in the diet. Discharge Attestations Time Spent in Discharge Care*: greater than 30 min Specific Discharge Activities: educating patient, educating and/or supporting family/caregiver, discussing with pcp/other providers, discussing with oil field caser/social workers/dc planners, documenting/other paperwork and evaluating patient/reviewing data Status at Discharge: Cognitive status at discharge: cognitively intact, Behavioral status at discharge: cooperative, Functional status at discharge: independent ambulation, Overall status at discharge: patient is back to baseline Quality Metrics Clinical Quality Measures [ No reported AMI, CVA or VTE this stay] Coding Level of Care Code Acute Chg DC note Diagnoses Small bowel obstruction K56.609 Abdominal carcinomatosis C76.2
[2021-10-23 11:23] VITALS: BP 119/74; PULSE 84; RESP 14; TEMP 36.6; O2SAT 91
== END 2021-10-23 12:06 | disposition home or self-care (01) | DRG 389 ==
LOC: ER 17:47 → MEDSURG 18:40
PROVIDERS: Admitting Provider Student in an Organized Health Care Education/Training Program; Emergency Provider Family Medicine; PCP Nurse Practitioner Family; Visit Provider Student in an Organized Health Care Education/Training Program
DX: K56.609 Unspecified intestinal obstruction, unspecified as to partial versus complete obstruction (principal); R18.8 Other ascites; E87.1 Hypo-osmolality and hyponatremia; C76.2 Malignant neoplasm of abdomen; Z85.51 Personal history of malignant neoplasm of bladder; Z85.43 Personal history of malignant neoplasm of ovary
CPT/HCPCS: 36415; 49083; 71045; 74177; 80053; 80061; 80503; 81001; 81003; 82042; 82150; 82436; 82945; 83036; 83540; 83550; 83605; 83615; 83690; 83735; 83986; 84075; 84100; 84133; 84157; 84300; 85025; 85610; 87040; 87070; 87075; 87150; 87205; 87641; 88108; 89050; 93005; 96361; 96372; 96374; 96375; 96376; 99285; C9113; G0378; J0743; J1170; J1644; J2270; J2405; J3480; J3490; J7030; Q9967

== ENCOUNTER 2021-10-26 10:41 | Observation (INO) | payer MEDICARE, SELFPAY ==
[2021-10-26] VITALS (10 sets, daily range): BP systolic 78–121; BP diastolic 55–79; PULSE 72–131; RESP 16–18; TEMP 36.9–38; O2SAT 92–97; BMI 28.3; BMI 28.1
--- NOTE | 2021-10-26 12:02 | CT_ITS ---
WS: [id number] CT ABDOMEN AND PELVIS WITH CONTRAST HISTORY: eval for infection TECHNIQUE: Imaging performed of the abdomen and pelvis with IV contrast. Single phase imaging of the abdomen. Coronal and sagittal reformats are submitted. All CT scans at [facility] use at [facility] [facility] one of these dose optimization techniques: automated exposure control; mA and/or kV adjustment per patient size (includes targeted exams where dose is matched to clinical indication); or iterative re construction. IV CONTRAST: Omnipaque 300; 95 mL IV. Oral contrast: No DLP: 1274.75 mGy.cm COMPARISON: 10/20/2021 and 09/21/2021 Lower thorax: Small LEFT pleural effusion similar to the prior study with mild improvement. No pulmon megha nodule or pneumonia. Heart is normal size. Small amount of fluid in the distal esophagus. Liver/biliary system: Normal size liver. Periportal edema, no bile duct dilatation. No mass in the li paul. Normal portal vein. Gallbladder: Status post cholecystectomy. Pancreas: Marked atrophy of the pancreas. Spleen: Normal size spleen. No mass or infarct. Adrenal glands: Normal. Right kidney: Normal. Left kidney: Normal. Aorta: Normal size aorta with calcification. Moderate stenosis involving the celiac axis. SMA is inta ct. Lymphadenopathy: Carcinomatosis is the greatest distribution LEFT upper abdomen. Carcinomatosis abuts the spleen the s tomach. There is extension along the splenic flexure. Additional mesenteric deposits in the RIGHT upp er abdomen. Free fluid: There is a small amount of ascites throughout the peritoneal cavity. Fluid extends into t he umbilical region. GI tract: Mildly distended stomach with fluid. There is small bowel obstruction with the loops of sma ll bowel measuring up to 3.5 cm in diameter. Fluid and air-filled loops of small bowel. There is a hy peremic loop of small bowel in the RIGHT abdomen with marked narrowing of the lumen. There is an peyton tional change in caliber of small bowel in the pelvis. There are dilated loops of small bowel with si gnificantly collapsed loops of small bowel in the RIGHT pelvis. There are additional areas of probabl y metastatic deposits causing the obstruction as there is nodularity along the wall of the small chava l. Majority of the colon is collapsed. Abdominal wall: Mild soft tissue anasarca. Pelvis: Urinary bladder well distended. There is a small amount of free fluid in the pelvis. Bones: Unremarkable. CT/CT abdomen pelvis w con* [id number] IMPRESSION: 1. Continued high-grade small bowel obstruction. There is a change in transiti on of small bowel in the RIGHT pelvis. Nodularity along the surface of numerous loops of small bowel suggesting metastatic sites. High-grade distal small chava l obstruction. Suspect site of the obstruction is a soft tissue mass seen best on image 66 of series 2. 2. There is an additional abnormal small bowel loop in the RIGHT abdomen narro wing of the lumen and hyperemia. Adjacent mesenteric neoplastic deposits are no felipe in the RIGHT abdomen. 3. Peritoneal carcinomatosis again noted in the LEFT abdomen. 4. Small amount of ascites. 5. Small LEFT pleural effusion.
--- NOTE | 2021-10-26 12:11 | ED_ITS ---
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 About a week ago patient had an outpatient paracentesis and took about 3 L of fluids. Since then, patient was then admitted to the hospital 10/20/2021 for possible small bowel obstruction. Patient was admitted to the hospital, patient had about 3.5 L of serosanguineous fluid drained upon admission. Patient was then discharged on . Since then patient reported that on Tuesday he has been having worsening abdominal distention. Patient also report one episode of emesis. Patient reports decreased appetite but has been able to tolerate fluid. Patient reports flatus but has not been able to pass any stool. Patient tells me that she does not have any fever or chills any focal significant worsening of abdominal pain. No urinary complaints currently, no hemoptysis, melena hematochezia. Patient has no complaints of chest pain, shortness breath palpitation or lightheadedness. Onset: chronic, acutely worsening 3 days ago Duration:3 days Location:home Severity:moderate Associated symptoms: Reports nausea and vomiting; Deny chest pain, dyspnea, rash or palpitations Review of Systems Const: Denies: fever(s) or chills Eyes: Denies: change in vision ENMT: Denies: mouth pain Card: Denies: chest pain or palpitations Resp: Denies: dyspnea or non-productive cough GI: Reports: abdominal pain, nausea, vomiting and other (+abdominal distension); Denies: diarrhea : Denies: dysuria Musc: Denies: extremity pain Skin/Breast: Denies: rash or new lesions Neuro: Denies: weakness in extremities Psych: Reports: other (Normal mood) Kiran/Lymph: Denies: easy bruising PFSH ED PFSH: Medical History (Updated 10/26/21 @ 16:03 by Zachariah Song MD) Abdominal carcinomatosis Anxiety Ascites Cancer of trigone of urinary bladder Depression Fibromyalgia History of urinary retention Hyponatremia Malignant Tone tumor of left ovary Ovarian cancer Polyuria Urgency incontinence Surgical History H/O esophagogastroduodenoscopy (06/17/21) History of carpal tunnel repair History of colonoscopy 2020 History of colostomy reversal History of transurethral destruction of bladder lesion Status post appendectomy Status post bilateral oophorectomy Status post colostomy Status post laparoscopic cholecystectomy (06/17/21) Social History Alcohol intake: never Adopted: No Caregiver/support person: No Lives independently: No Household members: spouse Marital status: Current occupational status: retired History of recent travel: No Current gender identity: Female Physical Exam Const: COMMON NORMALS: alert HENMT: COMMON NORMALS: atraumatic HEAD & SCALP: atraumatic MOUTH: moist mucous membranes abnormal Eye: COMMON NORMALS: EOMs intact bilaterally and conjunctivae normal CONJUNCTIVA: Yes conjunctivae normal Neck/C-Spine: COMMON NORMALS: full ROM and supple Resp: COMMON NORMALS: normal respiratory effort and clear to auscultation bilaterally AUSCULTATION: clear to auscultation bilaterally Cardio: RATE: tachycardic GI: COMMON NORMALS: Soft to palpation PALPATION: Yes Soft to palpation OTHER: +Abdominal distension. No focal TTP. NO guarding rebound, guarding, rigidity. No CVA tenderness to percussion. Neg White/Neg McBurney's point tenderness, no suprabupic tenderness to palpation. Extremity: COMMON NORMALS: full ROM Neuro: SENSORIUM/ORIENTATION: Yes alert MOTOR EXAM: No Abnormal motor strength present and Other motor observations present (no focal motor deficits) Psych: COMMON NORMALS: speech normal SPEECH: Yes normal speech MOOD & AFFECT: Yes euthymic mood Course Vital Signs: Vital signs: Vital Signs Temperature 98.4 F 10/26/21 11:06 Pulse Rate 78 10/26/21 21:21 Respiratory Rate 16 10/26/21 21:21 Blood Pressure 111/55 10/26/21 21:21 Pulse Oximetry 92 10/26/21 21:21 MDM - General Adult Medical Decision Making 66-year-old female with a history of peritoneal carcinomatosis presenting to the emergency room for worsening abdominal distention and pain, decreased appetite, 1 episode of nausea vomiting. On exam, patient has diffuse abdominal swelling. No focal tenderness palpation. No guarding no rebound tenderness. Patient is afebrile. White count of 2.1 today. Patient is noted to be tachycardic and dry on exam. CT abdomen pelvis showed high-grade small bowel obstruction with transition point in findings of focal metastases in the abdomen. Patient is not ed to have mild ascites. At the present time, do not have any suspicion of SBP as patient has no focal tenderness to palpation. Patient is noted to have white count 2.1. Patient is not neutropenic. Last dose of immunotherapy was 2 weeks ago. Case was discussed with Dr. Crespo who recommended inpatient admission for small bowel obstruction with conservative management currently. Patient declined NG tube due to discomfort previously. At the present time, patient reports leaning towards comfort care but would like to discuss with specialist prior to making that decision. Disposition: admission Lab Data : 10/26/21 12:44 10/26/21 12:44 Radiology Impressions Abdomen/Pelvis CT 10/26/21 12:02 IMPRESSION: 1. Continued high-grade small bowel obstruction. There is a change in transition of small bowel in the RIGHT pelvis. Nodularity along the surface of numerous loops of small bowel suggesting metastatic sites. High-grade distal small bowel obstruction. Suspect site of the obstruction is a soft tissue mass seen best on image 66 of series 2. 2. There is an additional abnormal small bowel loop in the RIGHT abdomen narrowing of the lumen and hyperemia. Adjacent mesenteric neoplastic deposits are noted in the RIGHT abdomen. 3. Peritoneal carcinomatosis again noted in the LEFT abdomen. 4. Small amount of ascites. 5. Small LEFT pleural effusion. Laboratory Results WBC 2.1 10^3/uL (4.0-10.0) L 10/26/21 12:44 RBC 3.83 10^6/uL (4.1-5.3) L 10/26/21 12:44 Hgb 10.3 g/dL (11.5-15.3) L 10/26/21 12:44 Hct 32.1 % (37.0-47.0) L 10/26/21 12:44 MCV 83.8 fl (81-99) 10/26/21 12:44 MCH 26.9 pg (28.0-34.0) L 10/26/21 12:44 MCHC 32.1 g/dL (30.0-36.0) 10/26/21 12:44 RDW 15.2 % (12.1-15.1) H 10/26/21 12:44 Plt Count 374 10^3/cmm (130-400) 10/26/21 12:44 MPV 9.2 fL (7.4-10.4) 10/26/21 12:44 Neut % (Auto) 58.8 % 10/26/21 12:44 Lymph % (Auto) 7.1 % 10/26/21 12:44 [place] % (Auto) 32.2 % 10/26/21 12:44 Eos % (Auto) 1.4 % 10/26/21 12:44 Baso % (Auto) 0.0 % 10/26/21 12:44 Neut # (Auto) 1.24 10^3/uL (1.8-7.7) L 10/26/21 12:44 Lymph # (Auto) 0.2 10^3/uL (0.8-4.8) L 10/26/21 12:44 [place] # (Auto) 0.7 10^3/uL (0.2-0.9) 10/26/21 12:44 Eos # (Auto) 0.0 10^3/uL (0.0-0.8) 10/26/21 12:44 Baso # (Auto) 0.0 10^3/uL (0.0-0.1) 10/26/21 12:44 Nucleated RBC % (auto) 0 % 10/26/21 12:44 Nucleated RBCs # 0.0 /100WBC 10/26/21 12:44 Sodium 123 mmol/L (136-145) L 10/26/21 12:44 Potassium 3.5 mmol/L (3.5-5.1) 10/26/21 12:44 Chloride 86 mmol/L (98-107) L 10/26/21 12:44 Carbon Dioxide 25 mmol/L (22-29) 10/26/21 12:44 Anion Gap 15.5 (5-19) 10/26/21 12:44 BUN 12 mg/dL (8-23) 10/26/21 12:44 Creatinine 0.6 mg/dL (0.5-0.9) 10/26/21 12:44 GFR Calculation 100.6 mL/min (90-130) 10/26/21 12:44 Glucose 114 mg/dL (65-115) 10/26/21 12:44 Calculated Osmolality 257 mOsm/kg (285-295) L 10/26/21 12:44 Lactate 1.3 mmol/L (0.5-2.2) 10/26/21 12:44 Calcium 8.0 mg/dL (8.5-10.5) L 10/26/21 12:44 Total Bilirubin 0.5 mg/dL (0.15-1.2) 10/26/21 12:44 AST 12 U/L (0-32) 10/26/21 12:44 ALT 6 U/L (0-33) 10/26/21 12:44 Alkaline Phosphatase 52 IU/L (35-105) 10/26/21 12:44 Total Protein 5.3 g/dL (6.6-8.7) L 10/26/21 12:44 Albumin 2.5 g/dL (3.5-5.2) L 10/26/21 12:44 Globulin 2.8 g/dL (1.3-4.6) 10/26/21 12:44 Lipase 10 U/L (13-60) L 10/26/21 12:44 Imaging Data Other Imaging: Radiologist's impression: [place] [id number] CT Scan Report Signed Patient: Tonya Pacheco Unit #: [id number] : 1955 Age/Sex: 66 / F ADM Date: 10/26/21 Loc: ER Room/Bed: Attending Dr: Ordering Provider/Ordering MD: Camille Morales MD Date of Service: 10/26/21 Procedure(s): CT abdomen pelvis w con* [id number] Accession Number(s): [id number] Report Number: [id number] WS: [id number] CT ABDOMEN AND PELVIS WITH CONTRAST HISTORY: eval for infection TECHNIQUE: Imaging performed of the abdomen and pelvis with IV contrast.? Single phase imaging of the abdomen. Coronal and sagittal reformats are submitted.? All CT scans at [facility] use at least one of these dose optimization techniques: automated exposure control; mA and/or kV adjustment per patient size (includes targeted exams where dose is matched to clinical indication); or iterative reconstruction. IV CONTRAST: Omnipaque 300; 95 mL IV. Oral contrast: No DLP: 1274.75 mGy.cm COMPARISON: 10/20/2021 and 09/21/2021 Lower thorax: Small LEFT pleural effusion similar to the prior study with mild improvement. No pulmonary nodule or pneumonia. Heart is normal size. Small amount of fluid in the distal esophagus. Liver/biliary system: Normal size liver. Periportal edema, no bile duct dilatation. No mass in the liver. Normal portal vein. Gallbladder: Status post cholecystectomy.? Pancreas: Marked atrophy of the pancreas. Spleen: Normal size spleen. No mass or infarct. Adrenal glands: Normal. Right kidney: Normal. Left kidney: Normal. Aorta: Normal size aorta with calcification. Moderate stenosis involving the celiac axis. SMA is intact. Lymphadenopathy: Carcinomatosis is the greatest distribution LEFT upper abdomen. Carcinomatosis abuts the spleen the stomach. There is extension along the splenic flexure. Additional mesenteric deposits in the RIGHT upper abdomen. Free fluid: There is a small amount of ascites throughout the peritoneal cavity. Fluid extends into the umbilical region. GI tract: Mildly distended stomach with fluid. There is small bowel obstruction with the loops of small bowel measuring up to 3.5 cm in diameter. Fluid and air- filled loops of small bowel. There is a hyperemic loop of small bowel in the RIGHT abdomen with marked narrowing of the lumen. There is an additional change in caliber of small bowel in the pelvis. There are dilated loops of small bowel with significantly collapsed loops of small bowel in the RIGHT pelvis. There are additional areas of probably metastatic deposits causing the obstruction as there is nodularity along the wall of the small bowel. Majority of the colon is collapsed. Abdominal wall: Mild soft tissue anasarca. Pelvis: Urinary bladder well distended. There is a small amount of free fluid in the pelvis. Bones: Unremarkable. CT/CT abdomen pelvis w con* [id number] IMPRESSION: ? 1.? Continued high-grade small bowel obstruction. There is a change in transition of small bowel in the RIGHT pelvis. Nodularity along the surface of numerous loops of small bowel suggesting metastatic sites. High-grade distal small bowel obstruction. Suspect site of the obstruction is a soft tissue mass seen best on image 66 of series 2. 2.? There is an additional abnormal small bowel loop in the RIGHT abdomen narrowing of the lumen and hyperemia. Adjacent mesenteric neoplastic deposits are noted in the RIGHT abdomen. 3.? Peritoneal carcinomatosis again noted in the LEFT abdomen. 4.? Small amount of ascites. 5.? Small LEFT pleural effusion. ? Dictated By: Ade Daugherty DO Signed By: Ade Daugherty DO Signed Date/Time: 10/26/21 1259 DD/ 1235 Discharge Plan Discharge Admit Provider: Zachariah Song Condition: Stable Coding Level of Care Code ED Laboratory Monitor for Chg Fwd Exam Comprehensive
[2021-10-26] MEDS: iohexol 300 mg/mL 100 mL Btl IV (12:24)
[2021-10-26] MEDS: HYDROmorphone 1 mg/mL INJ 1 mL 0.5 MG IVP ×2 (12:48→21:14)
[2021-10-26] MEDS: sodium chloride 0.9% 1,000 ML 999 ML IV (12:49)
[2021-10-26 12:53] LABS: Eosinophils % 1.4 %; Hematocrit 32.1 % (37.0-47.0); Hemoglobin 10.3 g/dL (11.5-15.3); Lymphocytes # 0.2 10^3/uL (0.8-4.8); Lymphocytes % 7.1 %; Mean Corpuscular HGB Conc 32.1 g/dL (30.0-36.0); Mean Corpuscular Hemoglobin 26.9 pg (28.0-34.0); Mean Corpuscular Volume 83.8 fl (81-99); Mean Platelet Volume 9.2 fL (7.4-10.4); Monocytes # 0.7 10^3/uL (0.2-0.9); Monocytes % 32.2 %; Neutrophils # 1.24 10^3/uL (1.8-7.7); Neutrophils % 58.8 %; Nucleated Red Blood Cells % 0 %; Platelet Count 374 10^3/cmm (130-400); Red Blood Count 3.83 10^6/uL (4.1-5.3); Red Cell Distribution Width 15.2 % (12.1-15.1); White Blood Count 2.1 10^3/uL (4.0-10.0)
[2021-10-26 13:12] LABS: Alanine Aminotransferase 6 U/L (0-33); Albumin Level 2.5 g/dL (3.5-5.2); Alkaline Phosphatase 52 IU/L (35-105); Anion Gap 15.5 (5-19); Aspartate Amino Transferase 12 U/L (0-32); Blood Urea Nitrogen 12 mg/dL (8-23); Carbon Dioxide 25 mmol/L (22-29); Chloride 86 mmol/L (98-107); Globulin 2.8 g/dL (1.3-4.6); Glomerular Filtration Rate 100.6 mL/min (90-130); Glucose 114 mg/dL (65-115); Lipase 10 U/L (13-60); Osmolality Calculated 257 mOsm/kg (285-295); Potassium 3.5 mmol/L (3.5-5.1); Sodium 123 mmol/L (136-145); Total Bilirubin 0.5 mg/dL (0.15-1.2); Total Protein 5.3 g/dL (6.6-8.7)
[2021-10-26 13:13] LABS: Lactate (Lactic Acid level) 1.3 mmol/L (0.5-2.2)
--- NOTE | 2021-10-26 14:52 | PC.NURSE ---
Pt states she does not want the NGT. states she had it last week for 4 days and that there is no point. Supplies at bedside if needed.
--- NOTE | 2021-10-26 15:38 | DCPLANNER ---
curriculum manager had message to speak with patient which hospice company that patient would like to use. curriculum manager spoke with patient, she stated that she would like to use the hospice company of [facility]. curriculum manager called [facility], gave facility patients information. curriculum manager was told that the social security specialist,Ashley from [facility] would come to the hospital to see patient. curriculum manager informed patients nurse and ER physician that hospice has been notified and will be coming to see patient in the hospital. She will see patient either in the ER or on the in patient side.
--- NOTE | 2021-10-26 15:54 | P.HP_ITS ---
Providers/Chief Complaint Primary Care Provider: JARED Rodriguez Chief Complaint: ABD pain History of Present Illness Tonya Pacheco is a 66 year old female presenting to the emergency department with some nausea, as well as abdominal distention. She reports she vomits, when she drinks quickly. She had a recent hospitalization and paracentesis at that time with drainage of 3-1/2 L. She states she feels similar to that. She has been told her ovarian cancer is not responding to any treatment currently and that she may be a candidate for hospice. She is willing to consider that. Last hospital stay was October 20, and she had an NG at that time. She reports she does not want an NG currently. She denies any fevers, chest pain, shortness of breath. She reports that Dilaudid in the emergency department worked a lot better than morphine for her pain and has not made her nauseous. Review of Systems General: Reports: 10 or more systems reviewed and unremarkable except in HPI and below Const: Denies: fever(s) or chills Eyes: Denies: change in vision ENMT: Denies: throat pain Card: Denies: chest pain Resp: Denies: dyspnea GI: Reports: abdominal pain, nausea and vomiting; Denies: hematochezia or melena : Denies: flank pain Musc: Denies: neck pain Skin/Breast: Denies: rash Neuro: Denies: headache(s) Psych: Denies: anxiety or depression Endo: Denies: polyuria Kiran/Lymph: Denies: easy bruising All/Imm: Denies: urticaria Medications/Allergies Home Medications Medication Instructions Recorded Confirmed Last Taken Type gabapentin 600 mg tablet 600 mg PO BEDTIME tab 08/08/19 10/26/21 10/25/21 History cetirizine 5 mg-pseudoephedrine ER 1 tab PO BID PRN 04/09/21 10/26/21 10/25/21 History 120 mg tablet,extended release,12hr (Zyrtec-D) duloxetine 60 mg capsule,delayed 90 mg PO BEDTIME cap 04/09/21 10/26/21 10/25/21 History release (Cymbalta) lisinopril 5 mg tablet 5 mg PO BEDTIME 04/09/21 10/26/21 10/25/21 History metoprolol succinate 25 mg 25 mg PO BEDTIME 04/09/21 10/26/21 10/25/21 History tablet,extended release 24 hr exemestane 25 mg tablet 25 mg PO QAM 10/20/21 10/26/21 10/26/21 History pantoprazole 40 mg tablet,delayed 40 mg PO BEDTIME 10/20/21 10/26/21 10/25/21 History release rosuvastatin 10 mg tablet 10 mg PO BEDTIME 10/20/21 10/26/21 10/25/21 History hydrocodone 5 mg-acetaminophen 325 1 tab PO Q6H 10/26/21 10/26/21 10/25/21 History mg tablet Allergies Allergy/AdvReac Type Severity Reaction Status Date / Time codeine Allergy ADR-Vomitin Verified 10/26/21 13:05 g influenza virus vaccine Allergy ALGY-Anaphy Verified 10/26/21 13:05 tval,purif- laxis morphine Allergy ADR-Vomitin Verified 10/26/21 13:05 g NSAIDS (Non-Steroidal Allergy ALGY-Hives Verified 10/26/21 13:05 Anti-Inflamma Penicillins Allergy ALGY-Hives Verified 10/26/21 13:05 Sulfa (Sulfonamide Allergy ALGY-Hives Verified 10/26/21 13:05 Antibiotics) PFSH Acute PFSH: Medical History (Updated 10/26/21 @ 16:03 by Zachariah Song MD) Abdominal carcinomatosis Anxiety Ascites Cancer of trigone of urinary bladder Depression Fibromyalgia History of urinary retention Hyponatremia Malignant Tone tumor of left ovary Ovarian cancer Polyuria Urgency incontinence Surgical History H/O esophagogastroduodenoscopy (06/17/21) History of carpal tunnel repair History of colonoscopy 2020 History of colostomy reversal History of transurethral destruction of bladder lesion Status post appendectomy Status post bilateral oophorectomy Status post colostomy Status post laparoscopic cholecystectomy (06/17/21) Social History Alcohol intake: never Adopted: No Caregiver/support person: No Lives independently: No Household members: spouse Marital status: Current occupational status: retired History of recent travel: No Current gender identity: Female Vitals/I&O/Wt Last Vital Signs Temp 98.4 F 10/26/21 11:06 Pulse 117 H 10/26/21 15:38 Resp 18 10/26/21 15:38 BP 78/67 10/26/21 15:38 Pulse Ox 93 10/26/21 15:38 Weight last 48 hrs Weight 63.503 kg Physical Exam Narrative: General exam is a white female, no distress currently, fully conversant. HEENT: Pupils equally round. Oropharynx clear. Neck is supple no lymphadenopathy or thyromegaly Cardiovascular tachycardic, no murmur, regular Lungs clear no wheezing or crackles Abdomen is distended. Hypoactive bowel sounds. Mild global tenderness. No rebound. exam is deferred Extremities no cyanosis clubbing or edema, cap refill brisk Skin no rash Neuro no focal deficits. Data : 10/26/21 12:44 10/26/21 12:44 Micro: Microbiology 10/26/21 13:24 Blood Culture - Preliminary Blood SPECIMEN COLLECTED 10/26/21 12:44 Blood Culture - Preliminary Blood SPECIMEN COLLECTED Other data: Lipase normal LFTs normal Albumin 2.5 CT demonstrated continued high-grade small bowel obstruction, transition point right pelvis consistent with high-grade distal small bowel obstruction. Periton eal carcinomatosis and masses are noted. Only a small amount of ascites. A&P Assessment and plan (1) Small bowel obstruction: Significant small bowel obstruction, high-grade, secondary to ovarian cancer with peritoneal carcinomatosis and masses. At this point she is not actively vomiting, lexis refused an NG Ativan as needed for anxiety, Dilaudid as needed for pain Hospice consultation Possible discharge home tomorrow on hospice with oral pain medication that can be absorbed from her buccal mucosa I have discussed her case with her oncologist. Allow natural Status: Acute (2) Ascites: Does not have significant amount of ascites on CT scan currently. Status: Acute (3) Hyponatremia: Hyponatremia is present secondary to her chronic illness and bowel obstruction. Hydration overnight while she makes her decisions about hospice We will avoid any blood draw tomorrow as I believe she will transition to hospice tomorrow for discharge. Status: Acute (4) Ovarian cancer: See notations above Status: Acute Plan Multiple other medical problems as noted in past medical history Allow natural Hospice consult Likely discharge tomorrow under hospice care Observation only, no anticoagulation for DVT prophylaxis, SCDs only Attestations Medical Necessity Statement*: Will need less than 2 midnight stay for evaluation of small bowel obstruction and hospice candidacy Coding Level of Care Code Acute Health Outreach Worker for Chg Fwd Diagnoses Small bowel obstruction K56.609 Ascites R18.8 Hyponatremia E87.1 Ovarian cancer C56.9
[2021-10-26 16:20] LABS: Add Urine Microscopic? YES; Bilirubin Urine 1+ (Negative); Blood Urine Neg (Negative); Glucose Urine UA Norm (Normal); Ketones Urine 1+ (Negative); Leukocyte Esterase Urine Negative (Negative); Nitrate Urine Negative (Negative); Protein Urine 1+ (Negative); Urine Appearance Clear (CLEAR); Urine Color Yellow (Yellow); Urobilinogen Urine 8 mg/dL (Negative); pH Urine 7 (5-7)
[2021-10-26 16:21] LABS: Add Urine Culture? No; Bacteria Urine 1+ /hpf; WBC Urine 0-4 /hpf (0-5)
[2021-10-26] MEDS: pantoprazole 40 mg SDV IVP (16:56)
[2021-10-26] MEDS: sodium chloride 0.9% 1,000 ML 75 ML IV (17:08)
[2021-10-26] MEDS: acetaminophen 325 mg Tablet 650 MG PO (20:01)
[2021-10-27] VITALS: BP 110/63; PULSE 116; RESP 17; TEMP 37.1; O2SAT 91
[2021-10-27] MEDS: ondansetron 2 mg/ML SDV 2 mL 4 MG IVP (03:38)
[2021-10-27 04:00] VITALS: BP 127/78; PULSE 122; RESP 17; TEMP 37.7; O2SAT 92
[2021-10-27 04:43] VITALS: RESP 18
[2021-10-27] MEDS: HYDROmorphone 1 mg/mL INJ 1 mL 0.5 MG IVP ×2 (04:43→12:39)
[2021-10-27] MEDS: sodium chloride 0.9% 1,000 ML 75 ML IV (04:46)
[2021-10-27 07:40] VITALS: BP 108/64; PULSE 115; RESP 18; TEMP 36.8; O2SAT 93
--- NOTE | 2021-10-27 07:41 | PC.NURSE ---
Bedside report rec & MR reviewed. Adm dx includes SBO, ascites. She recently had a paracentesis. Prev shift medicated w dilaudid & zofran. Upon rounds she was resting in bed, no s/s of distress. POC is possible hospice placement upon discharge.
--- NOTE | 2021-10-27 09:42 | P.DS_ITS ---
Discharge Providers Date of Admission: 10/26/21 15:00 Date of Discharge: October 27, 2021 Attending Provider at Admission: Zachariah Song MD Attending Provider at Discharge: Zachariah Song MD Primary Care Provider: JARED Rodriguez Diagnoses at Discharge Discharge Diagnosis (1) Small bowel obstruction: Status: Acute (2) Ascites: Status: Acute (3) Hyponatremia: Status: Acute (4) Ovarian cancer: Status: Acute Reason for Visit Reason for Visit: ABD pain Hospital Course Hospital Course Tonya is a 66-year-old white female with advanced ovarian cancer with peritoneal carcinomatosis and abdominal masses who presented with recurrent abdominal pain. She was recently hospitalized for small bowel obstruction, and had NG placement as well as paracentesis. She reports recurrent symptoms of abdominal discomfort after discharge home. She did not have any vomiting. She was still passing a small amount of air. In the emergency department a repeat CT scan demonstrated no significant ascites. Small bowel obstruction has become more advanced. I had an extensive discussion with the patient regarding hospice, and visited with her oncologist who reported it was appropriate as well. She was placed in observation, arrangements were made for home hospice, and this was able to be accomplished October 27 and she was discharged home. Physical Exam Narrative: General exam no distress Neck is supple Cardiovascular slight tachycardia Lungs clear Abdomen slight distention, distant high-pitched bowel sounds Extremities no cyanosis clubbing or edema Discharge Data Studies Completed and Pending Completed Studies During Hospitalization Category Date Time Status CT abdomen pelvis w con* [id number] Urgent Cat Scan 10/26/21 12:02 Completed Pending at discharge Category Date Time Status Blood Culture Stat Lab 10/26/21 13:24 Results Radiology Impressions Abdomen/Pelvis CT 10/26/21 12:02 IMPRESSION: 1. Continued high-grade small bowel obstruction. There is a change in transition of small bowel in the RIGHT pelvis. Nodularity along the surface of numerous loops of small bowel suggesting metastatic sites. High-grade distal small bowel obstruction. Suspect site of the obstruction is a soft tissue mass seen best on image 66 of series 2. 2. There is an additional abnormal small bowel loop in the RIGHT abdomen narrowing of the lumen and hyperemia. Adjacent mesenteric neoplastic deposits a re noted in the RIGHT abdomen. 3. Peritoneal carcinomatosis again noted in the LEFT abdomen. 4. Small amount of ascites. 5. Small LEFT pleural effusion. Laboratory Results WBC 2.1 10^3/uL (4.0-10.0) L 10/26/21 12:44 RBC 3.83 10^6/uL (4.1-5.3) L 10/26/21 12:44 Hgb 10.3 g/dL (11.5-15.3) L 10/26/21 12:44 Hct 32.1 % (37.0-47.0) L 10/26/21 12:44 MCV 83.8 fl (81-99) 10/26/21 12:44 MCH 26.9 pg (28.0-34.0) L 10/26/21 12:44 MCHC 32.1 g/dL (30.0-36.0) 10/26/21 12:44 RDW 15.2 % (12.1-15.1) H 10/26/21 12:44 Plt Count 374 10^3/cmm (130-400) 10/26/21 12:44 MPV 9.2 fL (7.4-10.4) 10/26/21 12:44 Neut % (Auto) 58.8 % 10/26/21 12:44 Lymph % (Auto) 7.1 % 10/26/21 12:44 [place] % (Auto) 32.2 % 10/26/21 12:44 Eos % (Auto) 1.4 % 10/26/21 12:44 Baso % (Auto) 0.0 % 10/26/21 12:44 Neut # (Auto) 1.24 10^3/uL (1.8-7.7) L 10/26/21 12:44 Lymph # (Auto) 0.2 10^3/uL (0.8-4.8) L 10/26/21 12:44 [place] # (Auto) 0.7 10^3/uL (0.2-0.9) 10/26/21 12:44 Eos # (Auto) 0.0 10^3/uL (0.0-0.8) 10/26/21 12:44 Baso # (Auto) 0.0 10^3/uL (0.0-0.1) 10/26/21 12:44 Nucleated RBC % (auto) 0 % 10/26/21 12:44 Nucleated RBCs # 0.0 /100WBC 10/26/21 12:44 Sodium 123 mmol/L (136-145) L 10/26/21 12:44 Potassium 3.5 mmol/L (3.5-5.1) 10/26/21 12:44 Chloride 86 mmol/L (98-107) L 10/26/21 12:44 Carbon Dioxide 25 mmol/L (22-29) 10/26/21 12:44 Anion Gap 15.5 (5-19) 10/26/21 12:44 BUN 12 mg/dL (8-23) 10/26/21 12:44 Creatinine 0.6 mg/dL (0.5-0.9) 10/26/21 12:44 GFR Calculation 100.6 mL/min (90-130) 10/26/21 12:44 Glucose 114 mg/dL (65-115) 10/26/21 12:44 Calculated Osmolality 257 mOsm/kg (285-295) L 10/26/21 12:44 Lactate 1.3 mmol/L (0.5-2.2) 10/26/21 12:44 Calcium 8.0 mg/dL (8.5-10.5) L 10/26/21 12:44 Total Bilirubin 0.5 mg/dL (0.15-1.2) 10/26/21 12:44 AST 12 U/L (0-32) 10/26/21 12:44 ALT 6 U/L (0-33) 10/26/21 12:44 Alkaline Phosphatase 52 IU/L (35-105) 10/26/21 12:44 Total Protein 5.3 g/dL (6.6-8.7) L 10/26/21 12:44 Albumin 2.5 g/dL (3.5-5.2) L 10/26/21 12:44 Globulin 2.8 g/dL (1.3-4.6) 10/26/21 12:44 Lipase 10 U/L (13-60) L 10/26/21 12:44 Urine Color Yellow (Yellow) 10/26/21 15:50 Urine Appearance Clear (CLEAR) 10/26/21 15:50 Urine pH 7 (5-7) 10/26/21 15:50 Ur Specific [place] 1.010 (1.005-1.030) 10/26/21 15:50 Urine Protein 1+ (Negative) H 10/26/21 15:50 Urine Glucose (UA) Norm (Normal) 10/26/21 15:50 Urine Ketones 1+ (Negative) H 10/26/21 15:50 Urine Blood Neg (Negative) 10/26/21 15:50 Urine Nitrate Negative (Negative) 10/26/21 15:50 Urine Bilirubin 1+ (Negative) H 10/26/21 15:50 Urine Urobilinogen 8 mg/dL (Negative) H 10/26/21 15:50 Ur Leukocyte Esterase Negative (Negative) 10/26/21 15:50 Urine RBC None /hpf (0-2) 10/26/21 15:50 Urine WBC 0-4 /hpf (0-5) H 10/26/21 15:50 Ur Squamous Epith Cells 10-15 /hpf (0-5) H 10/26/21 15:50 Amorphous Sediment Not Reportable 10/26/21 15:50 Urine Bacteria 1+ /hpf (NONE) H 10/26/21 15:50 Vitals Last Vital Signs Temp 98.2 F 10/27/21 07:40 Pulse 115 H 10/27/21 07:40 Resp 18 10/27/21 07:40 BP 108/64 10/27/21 07:40 Pulse Ox 93 10/27/21 07:40 Discharge Plan Discharge Patient Disposition: Hospice - Home Condition: Stable Prescriptions: New Lorazepam Intensol 2 mg/mL concentrate 0.5 mg PO Q4H PRN (Reason: anxiety) Qty: 30 0RF Dilaudid 1 mg/mL liquid 0.5 mg PO Q3H PRN (Reason: pain) Qty: 30 0RF Continued gabapentin 600 mg tablet 600 mg PO BEDTIME 0RF duloxetine [Cymbalta] 60 mg capsule,delayed release(DR/EC) 90 mg PO BEDTIME 0RF Label Comments: With 30mg for PRN cetirizine-pseudoephedrine [Zyrtec-D] 5-120 mg tablet extended release 12 hr 1 tab PO BID PRN (Reason: Allergy Symptoms) 0RF pantoprazole 40 mg tablet,delayed release (DR/EC) 40 mg PO BEDTIME 0RF Discontinued metoprolol succinate 25 mg tablet extended release 24 hr 25 mg PO BEDTIME 0RF lisinopril 5 mg tablet 5 mg PO BEDTIME 0RF exemestane 25 mg tablet 25 mg PO QAM 0RF rosuvastatin 10 mg tablet 10 mg PO BEDTIME 0RF hydrocodone-acetaminophen 5-325 mg tablet 1 tab PO Q6H 0RF Discharge Orders: Discharge Order (Routine); Ordered 10/27/21 Ordered By: Zachariah Song Referrals: Klaudia Cedeno FNP [Primary Care Provider] - Discharge Diet: Advance as tolerated and Clear Liquid Discharge Activity: Increase activity as tolerated Activity Restrictions/Additional Instructions: Follow-up with hospice, at home. Discharge Attestations Time Spent in Discharge Care*: greater than 30 min Status at Discharge: Cognitive status at discharge: cognitively intact , Behavioral status at discharge: cooperative , Quality Metrics Clinical Quality Measures [ No reported AMI, CVA or VTE this stay] Coding Level of Care Code Acute Chg DC note Diagnoses Small bowel obstruction K56.609 Ascites R18.8 Hyponatremia E87.1 Ovarian cancer C56.9
[2021-10-27 10:28] LABS: Bacillus cereus group Not Detected (NOT DETECT); Bacillus subtillis group Not Detected (NOT DETECT); Corynebacterium Not Detected (NOT DETECT); Cutibacterium acnes (P.acnes) Not Detected (NOT DETECT); Enterococcus Not Detected (NOT DETECT); Enterococcus faecalis Not Detected (NOT DETECT); Enterococcus faecium Not Detected (NOT DETECT); Lactobacillus species Not Detected (NOT DETECT); Listeria Not Detected (NOT DETECT); Listeria monocytogenes Not Detected (NOT DETECT); Micrococcus Not Detected (NOT DETECT); Pan Candida Not Detected (NOT DETECT); Pan Gram-Negative Not Detected (NOT DETECT); Staphylococcus epidermidis Detected (NOT DETECT); Staphylococcus lugdunensis Not Detected (NOT DETECT); Staphylococcus species Detected (NOT DETECT); Streptococcus agalactiae Not Detected (NOT DETECT); Streptococcus anginosus group Not Detected (NOT DETECT); Streptococcus pneumoniae Not Detected (NOT DETECT); Streptococcus pyogenes Not Detected (NOT DETECT); Streptococcus species Not Detected (NOT DETECT); mecA Not Detected (NOT DETECT); mecC Not Detected (NOT DETECT)
[2021-10-27 12:00] VITALS: BP 145/78; PULSE 131; RESP 18; TEMP 36.6; O2SAT 93
--- NOTE | 2021-10-27 12:05 | PC.NURSE ---
Lft msg for re discharge & ride home.
[2021-10-27 12:39] VITALS: RESP 20
[2021-10-27] MEDS: acetaminophen 325 mg Tablet 650 MG PO (12:39)
== END 2021-10-27 13:21 | disposition hospice, home (50) ==
LOC: ER 18:25 → ER IP 19:53 → MEDSURG 22:03 → ER IP 10-27 08:23
PROVIDERS: Admitting Provider Internal Medicine; Emergency Provider Emergency Medicine; PCP Nurse Practitioner Family; Visit Provider Internal Medicine
DX: K56.609 Unspecified intestinal obstruction, unspecified as to partial versus complete obstruction (principal); R18.8 Other ascites; E87.1 Hypo-osmolality and hyponatremia; C56.9 Malignant neoplasm of unspecified ovary; F41.9 Anxiety disorder, unspecified; M79.7 Fibromyalgia
CPT/HCPCS: 74177; 80053; 81001; 83605; 83690; 85025; 87040; 87150; 87205; 96361; 96374; 96375; 96376; 99285; C9113; G0378; J1170; J2405; J7030; Q9967